=== PATIENT | female | born 1950 | race Caucasian/White ===

== ENCOUNTER 2016-12-15 18:08 | Inpatient (IN) | payer MEDICARE, MEDICAID ==
[~2016-12-15] VITALS: Ht 162.6 cm; Wt 60.8 kg
[~2016-12-15 18:08] MED LIST: AMLO5TAB PO; ATENOLOL100 MG; KEFLEX 500MG.500 MG PO; LISINOPRIL40 MG PO; TYLENOL W/CODEI1 TA2 PO
[2016-12-15 18:11] VITALS: BP 133/50
--- NOTE | 2016-12-15 18:15 | Emergency Room Report ---
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 N Clinical Suspician of Infection? N Mental Status: 1 - Regular (Normal Baseline) Sepsis Risk:Low Sepsis Risk Have you (or family members/close friends) recently traveled outside the [place]? N If Yes, where/when: Have you had exposure to infectious disease within the past month? N TB? Other? Specify: Comment The patient is brought in by ambulance for vomiting and diarrhea. She says she has been sick for 4-5 days. He has pain on her RIGHT side, in the flank area as well. She has felt chilled, but no documented fevers. She is diabetic, but does not check her blood sugar. She is not on any diabetic medications. The sugar by EMS was 327. She denies urinary symptoms. She is generally weak since the onset of this illness, unable to get up and walk very far. ALLERGIES Coded Allergies: albuterol (04/25/15) enalapril (04/25/15) fluticasone (04/25/15) lorazepam (04/25/15) propranolol (04/25/15) Home Medications Active Scripts CEPHALEXIN (Keflex 500MG Capsule) 500 MG PO Q8H #21 CAP Prov: 12/28/12 APAP 300MG W/CODEINE 30MG (Acetaminophen-Cod #3 Tablet) 1 TAB PO Q6HP #10 TAB Prov: 12/28/12 Reported Medications Amlodipine Besylate (Amlodipine) Atenolol (Atenolol) Lisinopril (Lisinopril 40MG) History Medical History General CAD? No Angina: Yes IN: No Hypertension? Yes Hyperlipidemia? Yes CHF? No DVT? No PE? No COPD? Yes Asthma? Yes Anemia? No GERD? No Gastric ulcers? No GI Bleed? No Hernia? Yes Thyroid Problems? No Hypothyroidism? No CVA? No Seizures? No Diabetes? Yes Insulin Dependent: No Insulin Pump: No Home FSBS? No Renal Insuffiency? No End Stage Renal Disease? No UTI? Yes Stones? No BPH? No GB Disease: Yes Nephritic Syndrome? No Asplenia? No Hepatitis? No Sickle Cell Disease? No Arthritis? No Migraines? No Cataracts? Yes Glaucoma? No MRSA? No HIV? No TB? No Anxiety? No Depression? No Cancer? No More? No Immunization Hx DT/Tetanus > 10 YRS Flu NEVER Pneumonia NEVER Surgical Hx Previous Surgery?Y Tubal Ligation GALLBLADDER CATARACTS ORAL SURGERY SUPER PUBIC VAGINAL SLING Family History Family Hx Diabetes No CAD Yes Hypertension Yes Hyperlipidemia No Cancer Yes TB No Social History Smoking Hx Smoker: Current Every Day Smoker Tobacco: Yes Type Cigarettes Packs/day 1 1/2 - 2 Packs Alcohol Alcohol: No Review of Systems All Other Systems Reviewed and Negative Constitutional chills, denies fever, malaise, weakness Respiratory denies cough, denies shortness of breath Cardiovascular denies chest pain Gastrointestinal abdominal pain, diarrhea, nausea, vomiting Genitourinary frequency (chronic). denies: dysuria, hematuria. Musculoskeletal back pain (RIGHT flank) Physical Exam Vital Signs Vital Signs Date Time Temp Pulse Resp B/P Pulse O2 O2 Flow FiO2 Ox Delivery Rate 12/15 1908 84 20 152/59 93 12/15 1811 98.8 80 18 133/50 94 General Appearance dry mucous membranes Eye Exam - bilateral eye normal exam, bilateral eye PERRL, bilateral eye EOMI Ear, Nose, Throat hearing grossly normal, normal ENT inspection Neck normal inspection, non-tender, supple, full range of motion Respiratory Status Yes: trachea midline, chest symmetrical, non tender chest. No: respiratory distress. Lung Sounds bilateral: normal breath sounds, lungs clear. Cardiovascular normal exam, regular rate/rhythm, no peripheral edema, no gallop, no JVD, no murmur, no rub, normal peripheral pulses Peripheral Pulses Pulses normal Yes Gastrointestinal normal bowel sounds, soft, no organomegaly, no guarding, no rebound, right-sided abdominal tenderness Extremities non-tender, normal range of motion, normal inspection Neurologic alert, shear scrapman II-XII nml as tested, normal exam, oriented x 3 Mental status normal mood/affect Skin intact, normal color, warm/dry Medical Decision Making LABS/Meds/Orders Pt receiving controlled substance in ED? No Results/Orders Laboratory Tests 12/15/161924: Urine Color YELLOW, Urine Appearance CLOUDY, Urine pH 5.0, Ur Specific [place] > = 1.030, Urine Protein 2+ H, Urine Ketones NEGATIVE, Urine Blood 3+ H, Urine Nitrate NEGATIVE, Urine Bilirubin NEGATIVE, Urine Urobilinogen 0.2, Ur Leukocyte Esterase TRACE H, Urine Glucose 2+ H 12/15/161844: Creatine Kinase 516 H, CK-MB (CK-2) Rel Index 0.9, CK and CKMB Interp 4.6 H, Troponin I < 0.02 12/15/161844: Sodium 129 L, Potassium 3.9, Chloride 92 L, Carbon Dioxide 23, BUN 25 H, Creatinine 2.1 H, Estimated Creat Clear 28 L, Estimated GFR (MDRD) 23 L, Glucose 407 H, Calcium 9.1, Total Bilirubin 0.6, AST 32, ALT 28, Alkaline Phosphatase 116, Total Protein 7.4, Albumin 3.2 L, Globulin 4.2 H, Albumin/ Globulin Ratio 0.8 L, Amylase 23 L, Lipase 52 L, WBC 17.3 H, RBC 4.81, Hgb 14.1, Hct 43.1, MCV 89.7, RDW 14.1, Plt Count 169, MPV 9.4, Gran % 85.0 H, Gran # 14.7 H, Total Counted Pending, Lymphocytes % 9.3 L, Monocytes % 5.1, Eosinophils % 0.3, Basophils % 0.2, Neutrophils Pending, Lymphocytes (Manual) Pending, Lymphocytes # 1.6, Monocytes # 0.9, Eosinophils # 0.1, Basophils # 0.0, Platelet Estimate Pending, PUBS MCHC 32.7, MCH 29.3, Acetone Level NONE DETECTED Current Medication Orders Sig/Eduard Start time Last Medication Dose Route Stop Time Status Admin Ceftriaxone Sodium 1 GM ONCE ONE 12/15 2014 AC Sodium Chloride 50 ML IV 12/16 2043 Sodium Chloride 1,000 ML .Q6H40M 12/16 1999 AC IV 12/15 2358 Sodium Chloride 1,000 ML .STK-MED ONE 12/15 1953 DC IV Insulin Human [rDNA 10 UNITS ONCE ONE 12/15 1944 DC origin] ME 12/15 1945 Ondansetron HCl 0 .STK-MED ONE 12/15 1849 DC .ROUTE Sodium Chloride 1,000 ML .STK-MED ONE 12/15 1850 DC IV Ondansetron HCl 4 MG ONCE ONE 12/15 181 DC 12/15 IV 12/15 181 185 Sodium Chloride 10 ML PRN PRN 12/15 181 AC IV 12/16 181 Sodium Chloride 1,000 ML .Q1H1M 12/15 181 DC 12/15 IV 12/15 1915 185 Sodium Chloride 10 ML PRN PRN 12/15 181 AC IV 12/16 181 Orders Procedure Date/time Status DIET-NOTHING BY MOUTH 12/16 B Active CULTURE, BLOOD 12/15 2006 Active LACTIC ACID 12/15 2006 Active DIFFERENTIAL-WBC 12/15 1844 Active VENOUS BLOOD GAS 12/15 184 Active Acetone, Serum 12/15 184 Complete ELECTROCARDIOGRAM REQUEST 12/15 182 Active DIARRHEA PANEL, PCR 12/15 182 Active CARDIAC ENZYMES 12/[address] ABD & PELVIS W/O CONTRAST 12/[address] ABD/PELVIS REQ 12/15 181 Complete URINALYSIS/COMPLETE 12/15 181 Complete IV SALINE LOCK 12/15 181 Active LIPASE 12/15 1813 Complete CBC WITH AUTO DIFF 12/15 1813 Active CHEM 12 PROFILE 12/15 1813 Complete AMYLASE 12/15 181 Complete 12 LEAD EKG-DELON (INITIAL) 12/15 UNK Active CM/EKG CM/EKG Comments EKG interpreted by Bneito Deutsch MD: Rhythm: sinus Rate: 79 [place]: normal Ectopy: none Conduction: QTC [address] Segment Changes: none T Wave Changes: none Q Waves: none No evidence of acute ischemia or injury Baseline artifact and wander present, but I consider the EKG adequate for accurate interpretation. Left ventricular hypertrophy XRAY/CT/US XRAY/CT/US CT abdomen, pelvis Comment CT scan interpreted by [facility] radiologist. Faxed report received and reviewed: Mild RIGHT hydronephrosis and hydroureter with no evidence of an obstructing calculus or lesion. Perinephric inflammation and free fluid. Air in the bladder. Progress - 8:00 PM: I have discussed the case with Dr. Villa who agrees to admit the patient to the hospital. We discussed the patient's clinical information, including history, exam, laboratory and radiology results and ED course. Specific orders requested by the admitting physician: [facility] and he will write admit orders Departure Departure Disposition Still a Patient Clinical Impression Primary Impression: Acute renal failure Qualifiers: Acute renal failure type: unspecified Qualified Code: N17.9 - Acute kidney failure, unspecified Secondary Impressions: Dehydration Gastroenteritis Hyperglycemia Urinary tract infection Qualifiers: Urinary tract infection type: acute pyelonephritis Qualified Code: N10 - Acute pyelonephritis Condition STABLE Referrals Ed Moscoso (Family) ED Critical Care Critical Care Yes Time spent 30-74 min Vital system(s) involved: Metabolic Failure, Renal Failure I was present at bedside for Coordinating pt's care, Interpreting EKGs/Strips , During my initial exam, Reviewing lab results, Reviewing old records, Discussing pt condition at 2010
--- OUTSIDE RECORDS SUMMARY | 2016-12-15 18:17 | External Medical Summary Rpt ---
Author Author , LORENZA BRITT Address Unknown Phone [email or web address] Care Team Providers Care Property Management Intern Name Role Phone [facility], Unavailable Unavailable [facility] Mary Villa MD, Unavailable Unavailable Mary Villa MD [facility] Unavailable Unavailable [id number] # [phone], [facility] [id number] # [phone] Purpose Continuity of Care Document - 08-19-2009 through 2016 Problems Code Diagnosis DOS Provider Status 527.2 527.2 12-28-2012 [facility] E11.9 TYPE 2 DIABETES MELLITUS WITHOUT COMPLICATIO NS Allergies, Adverse Reactions, Alerts Type Drug Allergy Adverse Reaction to Substance Substance Reaction Severity Propranolol Unknown Unknown Lorazepam Unknown Unknown Albuterol Unknown Unknown Enalapril Unknown Unknown Fluticasone Unknown Unknown Medications Na ND Rx Da Fi Fi Am Da Di Ph RX Ph St me C No te ll ll ou ys ag ar # ys at rm s nt no ma ic us Or Da si cy ia de te s n re d CE 00 08 0 No FT 78 -0 RI 19 7- Lo AX 32 20 ng ON 89 13 er E 5 1 Ac GM ti ve AL LI 63 08 0 No DO 32 -0 CA 30 7- Lo IN 20 20 ng E 11 13 er HC 0 L Ac 1% ti ve AL De 00 08 0 No xa 51 -0 me 74 7- Lo th 90 20 ng as 12 13 er on 5 e Ac 4M ti G/ ve Ml Sd v LI 00 12 10 [address] Ac SI 59 -1 -2 .0 TE 28 EP ti NO 10 8- 5- 00 45 HE ve NM 40 20 20 AI NS IL 90 10 11 D 1 PH DO 40 AR N MA R MG CY TA 03 BL 93 ET 8 # 03 93 VE 51 01 10 11 30 30 RI 86 CL Ac SI 24 -0 -2 .0 TE 48 AR ti CA 80 3- 3- 00 06 KE ve RE 15 20 20 AI 5 00 11 11 D DE 1 PH RE MG AR K MA J TA CY BL ET 03 93 8 # 03 93 AM 00 09 10 5 [address] Ac LO 05 -1 -1 .0 TE 92 EP ti DI 40 6- 5- 00 76 HE ve PI 10 20 20 AI NS NE 12 11 11 D 2 PH DO BE AR N SY MA R LA CY TE 5 03 93 MG 8 # TA 03 B 93 AT 00 09 10 5 [address] Ac EN 09 -1 -1 .0 TE 92 EP ti OL 30 6- 5- 00 77 HE ve OL 75 20 20 AI NS 30 11 11 D 10 1 PH DO 0 AR N MG MA R CY TA BL 03 ET 93 8 # 03 93 LI 00 12 09 11 [address] Ac SI 59 -1 -2 .0 TE 28 EP ti NO 10 8- 6- 00 45 HE ve NM 40 20 20 AI NS IL 90 10 11 D 1 PH DO 40 AR N MA R MG CY TA 03 BL 93 ET 8 # 03 93 AT 00 09 09 5 [address] Ac EN 1 -1 .0 TE 92 EP ti OL 30 6- 6- 00 77 HE ve OL 75 20 20 AI NS 30 11 11 D 10 1 PH DO 0 AR N MG MA R CY TA BL 03 ET 93 8 # 03 93 AM 00 09 09 5 [address] Ac LO -1 -1 .0 TE 92 EP ti DI 40 6- 6- 00 76 HE ve PI 10 20 20 AI NS NE 12 11 11 D 2 PH DO BE AR N SY MA R LA CY TE 5 03 93 MG 8 # TA 03 B 93 RA 00 08 09 11 [address] Ac NI 17 -1 -1 .0 TE 46 EP ti TI 24 2- 3- 00 74 HE ve DI 35 20 20 AI NS NE 74 11 11 D 9 PH DO 15 AR N 0 MA R MG CY TA 03 BL 93 ET 8 # 03 93 AT 00 09 08 11 [address] Ac EN 09 -2 -1 .0 TE 09 EP ti OL 30 2- 8- 00 65 HE ve OL 75 20 20 AI NS 30 10 11 D 10 1 PH DO 0 AR N MG MA R CY TA BL 03 ET 93 8 # 03 93 LI 00 12 08 11 [address] Ac SI 59 -1 -1 .0 TE 28 EP ti NO 10 8- 8- 00 45 HE ve NM 40 20 20 AI NS IL 90 10 11 D 1 PH DO 40 AR N MA R MG CY TA 03 BL 93 ET 8 # 03 93 RA 00 08 08 11 [address] Ac NI 17 -1 -1 .0 TE 46 EP ti TI 24 2- 2- 00 74 HE ve DI 35 20 20 AI NS NE 74 11 11 D 9 PH DO 15 AR N 0 MA R MG CY TA 03 BL 93 ET 8 # 03 93 AT 00 09 07 11 [address] Ac EN 09 -2 -1 .0 TE 09 EP ti OL 30 2- 8- 00 65 HE ve OL 75 20 20 AI NS 30 10 11 D 10 1 PH DO 0 AR N MG MA R CY TA BL 03 ET 93 8 # 03 93 LI 68 12 07 [address] Ac SI 18 -1 -1 .0 TE 28 EP ti NO 00 8- 8- 00 45 HE ve NM 51 20 20 AI NS IL 70 10 11 D 1 PH DO 40 AR N MA R MG CY TA 03 BL 93 ET 8 # 03 93 RA 00 02 07 3 [address] Ac NI 17 -0 -0 .0 TE 98 EP ti TI 24 9- 3- 00 89 HE ve DI 35 20 20 AI NS NE 74 11 11 D 9 PH DO 15 AR N 0 MA R MG CY TA 03 BL 93 ET 8 # 03 93 LI 68 12 06 11 [address] Ac SI 18 -1 -1 .0 TE 28 EP ti NO 00 8- 6- 00 45 HE ve NM 51 20 20 AI NS IL 70 10 11 D 1 PH DO 40 AR N MA R MG CY TA 03 BL 93 ET 8 # 03 93 AT 00 09 06 11 [address] Ac EN 09 -2 -1 .0 TE 09 EP ti OL 30 2- 6- 00 65 HE ve OL 75 20 20 AI NS 30 10 11 D 10 1 PH DO 0 AR N MG MA R CY TA BL 03 ET 93 8 # 03 93 VE 51 01 06 11 30 30 RI 86 CL Ac SI 24 -0 -1 .0 TE 48 AR ti CA 80 3- 6- 00 06 KE ve RE 15 20 20 AI 5 00 11 11 D DE 1 PH RE MG AR K MA J TA CY BL ET 03 93 8 # 03 93 RA 00 02 05 3 [address] Ac NI 17 -0 -2 .0 TE 98 EP ti TI 24 9- 0- 00 89 HE ve DI 35 20 20 AI NS NE 74 11 11 D 9 PH DO 15 AR N 0 MA R MG CY TA 03 BL 93 ET 8 # 03 93 AT 00 09 05 11 [address] Ac EN 09 -2 -1 .0 TE 09 EP ti OL 30 2- 7- 00 65 HE ve OL 75 20 20 AI NS 30 10 11 D 10 1 PH DO 0 AR N MG MA R CY TA BL 03 ET 93 8 # 03 93 64 12 05 11 [address] Ac 67 -1 -1 .0 TE 28 EP ti 90 8- 7- 00 45 HE ve 94 20 20 AI NS 20 10 11 D 1 PH DO AR N MA R CY 03 93 8 # 03 93 VE 51 01 04 11 30 30 RI 86 CL Ac SI 24 -0 -3 .0 TE 48 AR ti CA 80 3- 0- 00 06 KE ve RE 15 20 20 AI 5 00 11 11 D DE 1 PH RE MG AR K MA J TA CY BL ET 03 93 8 # 03 93 AT 00 09 04 11 [address] Ac EN 09 -2 -1 .0 TE 09 EP ti OL 30 2- 8- 00 65 HE ve OL 75 20 20 AI NS 30 10 11 D 10 1 PH DO 0 AR N MG MA R CY TA BL 03 ET 93 8 # 03 93 63 12 04 11 [address] Ac 30 -1 -1 .0 TE 28 EP ti 40 8- 8- 00 45 HE ve 53 20 20 AI NS 50 10 11 D 1 PH DO AR N MA R CY 03 93 8 # 03 93 RA 00 02 04 3 [address] Ac NI 17 -0 -0 .0 TE 98 EP ti TI 24 9- 7- 00 89 HE ve DI 35 20 20 AI NS NE 74 11 11 D 9 PH DO 15 AR N 0 MA R MG CY TA 03 BL 93 ET 8 # 03 93 63 12 03 [address] Ac 30 -1 -1 .0 TE 28 EP ti 40 8- 9- 00 45 HE ve 53 20 20 AI NS 50 10 11 D 1 PH DO AR N MA R CY 03 93 8 # 03 93 AT 00 09 03 11 [address] Ac EN 09 -2 -1 .0 TE 09 EP ti OL 30 2 65 HE ve OL 75 20 20 AI NS 30 10 11 D 10 1 PH DO 0 AR N MG MA R CY TA BL 03 ET 93 8 # 03 93 AT 00 09 02 11 [address] Ac EN 09 -2 -1 .0 TE 09 EP ti OL 30 2- 7 65 HE ve OL 75 20 20 AI NS 30 10 11 D 10 1 PH DO 0 AR N MG MA R CY TA BL 03 ET 93 8 # 03 93 63 12 02 11 [address] Ac 30 -1 -1 .0 TE 28 EP ti 40 8- 7 45 HE ve 53 20 20 AI NS 50 10 11 D 1 PH DO AR N MA R CY 03 93 8 # 03 93 TR 00 02 02 [address] Ac AM 09 -0 -0 .0 TE 98 EP ti AD 30 9 86 HE ve OL 05 20 20 AI NS 80 11 11 D HC 1 PH DO L AR N 50 MA R CY MG 03 TA 93 BL 8 ET # 03 93 CY 00 02 02 1 [address] Ac CL 37 -0 -0 .0 TE 98 EP ti OB 80 88 HE ve EN 75 20 20 AI NS ZA 11 11 11 D NM 0 PH DO IN AR N E MA R 10 CY MG 03 93 TA 8 BL # ET 03 93 RA 00 02 02 3 [address] Ac NI 17 -0 -0 .0 TE 98 EP ti TI 24 89 HE ve DI 35 20 20 AI NS NE 74 11 11 D 9 PH DO 15 AR N 0 MA R MG CY TA 03 BL 93 ET 8 # 03 93 AT 00 09 01 11 [address] Ac EN 09 -2 -1 .0 TE 09 EP ti OL 30 2 65 HE ve OL 75 20 20 AI NS 30 10 11 D 10 1 PH DO 0 AR N MG MA R CY TA BL 03 ET 93 8 # 03 93 00 03 01 5 [address] Ac 17 -3 -1 .0 TE 81 EP ti 27 1- 6 00 94 HE ve 17 20 20 AI NS 16 10 11 D 0 PH DO AR N MA R CY 03 93 8 # 03 93 63 12 01 [address] Ac 30 -1 -1 .0 TE 28 EP ti 40 8 6 45 HE ve 53 20 20 AI NS 50 10 11 D 1 PH DO AR N MA R CY 03 93 8 # 03 93 VE 51 01 01 11 30 30 RI 86 CL Ac SI 24 -0 -0 .0 TE 48 AR ti CA 80 3- 3- 00 06 KE ve RE 15 20 20 AI 5 00 11 11 D DE 1 PH RE MG AR K MA J TA CY BL ET 03 93 8 # 03 93 AT 00 09 12 11 [address] Ac EN 09 -2 -2 .0 TE 09 EP ti OL 30 2- 0- 00 65 HE ve OL 75 20 20 AI NS 30 10 10 D 10 1 PH DO 0 AR N MG MA R CY TA BL 03 ET 93 8 # 03 93 63 12 12 11 [address] Ac 30 -1 -1 .0 TE 28 EP ti 40 8- 8- 00 45 HE ve 53 20 20 AI NS 50 10 10 D 1 PH DO AR N MA R CY 03 93 8 # 03 93 00 03 12 5 [address] Ac 17 -3 -0 .0 TE 81 EP ti 27 1- 8- 00 94 HE ve 17 20 20 AI NS 16 10 10 D 0 PH DO AR N MA R CY 03 93 8 # 03 93 63 03 12 [address] Ac 30 -3 -0 .0 TE 78 EP ti 40 1- 1- 00 58 HE ve 53 20 20 AI NS 40 10 10 D 1 PH DO AR N MA R CY 03 93 8 # 03 93 DE 00 01 11 5 30 30 RI 81 CL Ac TR 00 -1 -2 .0 TE 70 AR ti OL 95 4- 7- 00 92 KE ve 19 20 20 AI LA 10 10 10 D DE 4 1 PH RE AR K MG MA J CY CA PS 03 UL 93 E 8 # 03 93 AT 00 09 11 [address] Ac EN 09 -2 -2 .0 TE 09 EP ti OL 30 2- 3- 00 65 HE ve OL 75 20 20 AI NS 30 10 10 D 10 1 PH DO 0 AR N MG MA R CY TA BL 03 ET 93 8 # 03 93 63 03 11 [address] Ac 30 -3 -0 .0 TE 78 EP ti 40 1- 3- 00 58 HE ve 53 20 20 AI NS 40 10 10 D 1 PH DO AR N MA R CY 03 93 8 # 03 93 NI 00 11 11 0 10 5 CL 22 CL Ac TR 18 -0 -0 .0 IN 60 AR ti OF 50 2- 2- 00 IC 23 KE ve UR 12 20 20 AN 20 10 10 PH DE TO 1 AR RE IN MA K CY J MO NO LL -M C CR 10 0 MG AT 00 09 10 [address] Ac EN 09 -2 -2 .0 TE 09 EP ti OL 30 2- 2- 00 65 HE ve OL 75 20 20 AI NS 30 10 10 D 10 1 PH DO 0 AR N MG MA R CY TA BL 03 ET 93 8 # 03 93 00 03 10 5 [address] Ac 17 -3 -0 .0 TE 81 EP ti 27 1- 1- 00 94 HE ve 17 20 20 AI NS 14 10 10 D 9 PH DO AR N MA R CY 03 93 8 # 03 93 DE 00 01 10 5 30 30 RI 81 CL Ac TR 00 -1 -0 .0 TE 70 AR ti OL 95 4- 1- 00 92 KE ve 19 20 20 AI LA 10 10 10 D DE 4 1 PH RE AR K MG MA J CY CA PS 03 UL 93 E 8 # 03 93 AT 00 09 09 [address] Ac EN 09 -2 -2 .0 TE 09 EP ti OL 30 2- 2- 00 65 HE ve OL 75 20 20 AI NS 30 10 10 D 10 1 PH DO 0 AR N MG MA R CY TA BL 03 ET 93 8 # 03 93 AT 00 03 08 [address] Ac EN 09 -2 -2 .0 TE 74 EP ti OL 30 9- 3- 00 44 HE ve OL 75 20 20 AI NS 30 10 10 D 10 1 PH DO 0 AR N MG MA R CY TA BL 03 ET 93 8 # 03 93 00 08 08 5 10 25 RI 84 SC Ac 60 -1 -1 0. TE 53 HU ti 34 2- 2- 00 16 LS ve 61 20 20 0 AI TA 42 10 10 D D 1 PH CA AR MP MA BE CY LL K 03 93 8 # 03 93 NE 00 08 08 2 [address] Ac XI 18 -0 -0 .0 TE 42 EP ti UM 65 4- 4- 00 45 HE ve 04 [address] 03 10 10 D 1 PH DO 40 AR N MA R MG CY CA 03 PS 93 UL 8 E # 03 93 00 08 08 [address] Ac 60 -0 -0 0. TE 42 EP ti 34 4- 4- 00 46 HE ve 61 20 20 0 AI NS 52 10 10 D 8 PH DO AR N MA R CY 03 93 8 # 03 93 AT 00 03 07 5 [address] Ac EN 09 -2 -2 .0 TE 74 EP ti OL 30 9 00 44 HE ve OL 75 20 20 AI NS 30 10 10 D 10 1 PH DO 0 AR N MG MA R CY TA BL 03 ET 93 8 # 03 93 AT 00 03 06 5 [address] Ac EN 09 -2 -2 .0 TE 74 EP ti OL 30 9 5 00 44 HE ve OL 75 20 20 AI NS 30 10 10 D 10 1 PH DO 0 AR N MG MA R CY TA BL 03 ET 93 8 # 03 93 LI 00 03 06 11 [address] Ac SI 37 -3 -2 .0 TE 78 EP ti NO 82 58 HE ve NM 07 20 20 AI NS IL 50 10 10 D 1 PH DO 20 AR N MA R MG CY TA 03 BL 93 ET 8 # 03 93 DE 00 01 06 5 30 30 RI 81 CL Ac TR 00 -2 .0 TE 70 AR ti OL 95 92 KE ve 19 20 20 AI LA 10 10 10 D DE 4 1 PH RE AR K MG MA J CY CA PS 03 UL 93 E 8 # 03 93 AT 00 03 05 5 [address] Ac EN 09 2 -2 .0 TE 74 EP ti OL 30 9 8 00 44 HE ve OL 75 20 20 AI NS 30 10 10 D 10 1 PH DO 0 AR N MG MA R CY TA BL 03 ET 93 8 # 03 93 00 03 05 5 [address] Ac 90 -3 -2 .0 TE 81 EP ti 45 8 94 HE ve 44 20 20 AI NS 66 10 10 D 1 PH DO AR N MA R CY 03 93 8 # 03 93 ME 00 04 05 5 [address] Ac TF 09 - -2 .0 TE 98 EP ti OR 31 4 8- 00 11 HE ve MA 04 20 20 AI NS N 80 10 10 D HC 1 PH DO L AR N 50 MA R 0 CY MG 03 TA 93 BL 8 ET # 03 93 DE 00 01 05 5 30 30 RI 81 CL Ac TR 00 -1 -1 .0 TE 70 AR ti OL 95 4- 5- 00 92 KE ve 19 20 20 AI LA 10 10 10 D DE 4 1 PH RE AR K MG MA J CY CA PS 03 UL 93 E 8 # 03 93 LI 00 03 05 [address] Ac SI 37 -3 -0 .0 TE 78 EP ti NO 82 1- 4- 00 58 HE ve NM 07 20 20 AI NS IL 50 10 10 D 1 PH DO 20 AR N MA R MG CY TA 03 BL 93 ET 8 # 03 93 AT 00 03 04 5 [address] Ac EN 09 -2 -2 .0 TE 74 EP ti OL 30 9 44 HE ve OL 75 20 20 AI NS 30 10 10 D 10 1 PH DO 0 AR N MG MA R CY TA BL 03 ET 93 8 # 03 93 DE 00 01 04 5 30 30 RI 81 CL Ac TR 00 -1 -1 .0 TE 70 AR ti OL 95 4- 4- 00 92 KE ve 19 20 20 AI LA 10 10 10 D DE 4 1 PH RE AR K MG MA J CY CA PS 03 UL 93 E 8 # 03 93 ME 00 04 04 5 [address] Ac TF 09 -1 -1 .0 TE 98 EP ti OR 31 4 4 11 HE ve MA 04 20 20 AI NS N 80 10 10 D HC 1 PH DO L AR N 50 MA R 0 CY MG 03 TA 93 BL 8 ET # 03 93 00 03 03 [address] Ac 90 -3 -3 .0 TE 81 EP ti 45 1- - 00 94 HE ve 44 20 20 AI NS 66 10 10 D 1 PH DO AR N MA R CY 03 93 8 # 03 93 LI 00 03 03 [address] Ac SI 37 -3 -3 .0 TE 78 EP ti NO 82 1 58 HE ve NM 07 20 20 AI NS IL 50 10 10 D 1 PH DO 20 AR N MA R MG CY TA 03 BL 93 ET 8 # 03 93 AT 00 03 03 5 [address] Ac EN 09 -2 -2 .0 TE 74 EP ti OL 30 00 44 HE ve OL 75 20 20 AI NS 30 10 10 D 10 1 PH DO 0 AR N MG MA R CY TA BL 03 ET 93 8 # 03 93 Vital Signs 12-28-2012 13:43 Name Value Interpretat Reference Comment ion Range BP 72 mm[Hg] Diastolic BP Systolic 169 mm[Hg] Heart 82 /min Rate/Pulse O2% 97 % Respiratory 18 /min Rate 12-28-2012 13:35 Name Value Interpretat Reference Comment ion Range BP 72 mm[Hg] Diastolic BP Systolic 169 mm[Hg] Heart 60 /min Rate/Pulse O2% 98 % Respiratory 18 /min Rate Encounters Encounter Start End Date Code Location Performer Type Date Emergency JADE Villa MD (ER) 3 12:59 3 13:56 [facility]
--- OUTSIDE RECORDS SUMMARY | 2016-12-15 18:17 | External Medical Summary Rpt ---
Author Author , LORENZA BRITT Address Unknown Phone [email or web address] [email or web address] Care Professional Development Manager Name Role Phone [facility], Unavailable Unavailable [facility] Mary Villa MD, Unavailable Unavailable Mary Villa MD [facility] Unavailable Unavailable [id number] # [phone], [facility] [id number] # [phone] Purpose Continuity of Care Document - 08-19-2009 through 2016 Problems Code Diagnosis DOS Provider Status 527.2 527.2 12-28-2012 [facility] E11.9 TYPE 2 DIABETES MELLITUS WITHOUT [...] 10 8- 5- 00 45 HE ve KS 40 20 20 AI NS IL 90 [...] 10 8- 6- 00 45 HE ve KS 40 20 20 AI NS IL 90 [...] 10 8- 8- 00 45 HE ve KS 40 20 20 AI NS IL 90 [...] 00 8- 8- 00 45 HE ve KS 51 20 20 AI NS IL 70 [...] 00 8- 6- 00 45 HE ve KS 51 20 20 AI NS IL 70 [...] AI NS ZA 11 11 11 D KS 0 PH DO IN AR N E [...] EP ti NO 82 58 HE ve KS 07 20 20 AI NS IL 50 [...] 31 4 8- 00 11 HE ve VT 04 20 20 AI NS N 80 [...] 82 1- 4- 00 58 HE ve KS 07 20 20 AI NS IL 50 [...] OR 31 4 4 11 HE ve VT 04 20 20 AI NS N 80 [...] ti NO 82 1 58 HE ve KS 07 20 20 AI NS IL 50 [...] Villa MD (ER) 3 12:59 3 13:56 [facility]
--- OUTSIDE RECORDS SUMMARY | 2016-12-15 18:19 | External Medical Summary Rpt ---
Demographics Preferred Language Hungarian Marital Status Unknown Rastafarian Affiliation Unknown Race Unknown Ethnic Group Unknown Author Author , LORENZA BRITT Address Unknown Phone [email or web address] Care Team Providers Care Archives Specialist Name Role Phone [facility], Unavailable Unavailable [facility] Unavailable Unavailable [id number] # [phone], [facility] [id number] # [phone] Purpose Continuity of Care Document - 08-19-2009 through 2016 Medications Na ND Rx Da Fi Fi Am Da Di Ph RX Ph St me C No te ll ll ou ys ag ar # ys at rm s nt no ma ic us Or Da si cy ia de te s n re d LI 00 12 10 11 [address] Ac SI 59 -1 -2 .0 TE 28 EP ti NO 10 8- 5- 00 45 HE ve WA 40 20 20 AI NS IL 90 [...] 10 8- 6- 00 45 HE ve WA 40 20 20 AI NS IL 90 10 11 D 1 PH DO 40 AR N MA R MG CY TA 03 BL 93 ET 8 # 03 93 AM 00 09 [...] TA 03 B 93 AT 00 09 09 5 [address] Ac EN 09 -1 -1 .0 TE 92 EP ti OL 30 6- 6- 00 77 HE ve OL 75 20 20 AI NS 30 11 11 D 10 1 PH DO 0 AR N MG MA R CY TA BL 03 ET 93 8 # 03 93 RA 00 08 09 11 60 [...] 10 8- 8- 00 45 HE ve WA 40 20 20 AI NS IL 90 [...] 00 8- 8- 00 45 HE ve WA 51 20 20 AI NS IL 70 [...] 00 8- 6- 00 45 HE ve WA 51 20 20 AI NS IL 70 [...] ET 03 93 8 # 03 93 63 12 04 11 [address] Ac 30 -1 -1 .0 TE 28 EP ti 40 8 8 45 HE ve 53 20 20 AI NS 50 10 11 D 1 PH DO AR N MA R CY 03 93 8 # 03 93 AT 00 09 04 11 [address] Ac EN 09 -2 -1 .0 TE 09 EP ti OL 30 2- 8 00 65 HE ve OL 75 20 20 AI NS 30 10 11 D 10 1 PH DO 0 AR N MG MA R CY TA BL 03 ET 93 8 # 03 93 RA 00 02 04 3 [address] Ac NI 17 -0 -0 .0 TE 98 EP ti TI 24 9 89 HE ve DI 35 20 20 [...] 93 8 # 03 93 63 12 03 11 [address] Ac 30 -1 -1 .0 TE 28 EP ti 40 8 45 HE ve 53 20 20 AI [...] .0 TE 28 EP ti 40 8 7 45 HE ve 53 20 20 AI NS 50 10 11 D 1 PH DO AR N MA R CY 03 93 8 # 03 93 TR 00 02 02 [address] Ac AM 09 -0 -0 .0 TE 98 EP ti AD 30 86 HE ve OL 05 20 20 AI NS 80 11 11 D HC 1 PH DO L AR N 50 MA R CY MG 03 TA 93 BL 8 ET # 03 93 CY 00 02 02 1 [address] Ac CL 37 -0 -0 .0 TE 98 EP ti OB 80 9 88 HE ve EN 75 20 20 AI NS ZA 11 11 11 D WA 0 PH DO IN AR N E MA R 10 CY MG 03 93 TA 8 BL # ET 03 93 RA 00 02 02 3 [address] Ac NI 17 -0 -0 .0 TE 98 EP ti TI 24 9- 9- 00 89 HE ve DI 35 20 20 AI NS NE 74 11 11 D 9 PH DO 15 AR N 0 MA R MG CY TA 03 BL 93 ET 8 # 03 93 AT 00 09 01 11 [address] Ac EN 09 -2 -1 .0 TE 09 EP ti OL 30 2- 9- 00 65 HE ve OL 75 20 20 AI NS 30 10 11 D 10 1 PH DO 0 AR N MG MA R CY TA BL 03 ET 93 8 # 03 93 00 03 01 5 [address] Ac 17 -3 -1 .0 TE 81 EP ti 27 1- 6- 00 94 HE ve 17 20 20 AI NS 16 10 11 D 0 PH DO AR N MA R CY 03 93 8 # 03 93 63 12 01 11 [address] Ac 30 -1 -1 .0 TE 28 EP ti 40 8- 6- 00 45 HE ve 53 20 20 [...] TE 74 EP ti OL 30 9- 4- 00 44 HE ve OL 75 20 20 AI NS 30 10 10 D 10 1 PH DO 0 AR N MG MA R CY TA BL 03 ET 93 8 # 03 93 AT 00 03 06 5 [address] Ac EN 09 -2 -2 .0 TE 74 EP ti OL 30 9- 5- 00 44 HE ve OL 75 20 20 AI NS 30 10 10 D 10 1 PH DO 0 AR N MG MA R CY TA BL 03 ET 93 8 # 03 93 LI 00 03 06 [address] Ac SI 37 -3 -2 .0 TE 78 EP ti NO 82 1- 1- 00 58 HE ve WA 07 20 20 AI NS IL 50 [...] TE 74 EP ti OL 30 9- 8- 00 44 HE ve OL 75 20 20 AI NS 30 10 10 D 10 1 PH DO 0 AR N MG MA R CY TA BL 03 ET 93 8 # 03 93 00 03 05 5 [address] Ac 90 -3 -2 .0 TE 81 EP ti 45 1- 8- 00 94 HE ve 44 20 20 AI NS 66 10 10 D 1 PH DO AR N MA R CY 03 93 8 # 03 93 ME 00 04 05 5 [address] Ac TF 09 -1 -2 .0 TE 98 EP ti OR 31 4- 8- 00 11 HE ve TN 04 20 20 AI NS N 80 [...] 82 1- 4- 00 58 HE ve WA 07 20 20 AI NS IL 50 10 10 D 1 PH DO 20 AR N MA R MG CY TA 03 BL 93 ET 8 # 03 93 AT 00 03 04 [address] Ac EN 09 -2 -2 .0 TE 74 EP ti OL 30 9- 7- 00 44 HE ve OL 75 20 20 AI NS 30 10 10 D 10 1 PH DO 0 AR N MG MA R CY TA BL 03 ET 93 8 # 03 93 ME 00 04 04 [address] Ac TF 09 -1 -1 .0 TE 98 EP ti OR 31 4- 4- 00 11 HE ve TN 04 20 20 AI NS N 80 10 10 D HC 1 PH DO L AR N 50 MA R 0 CY MG 03 TA 93 BL 8 ET # 03 93 DE 00 01 04 [...] TE 78 EP ti NO 82 1- 58 HE ve WA 07 20 20 AI NS IL 50 10 10 D 1 PH DO 20 AR N MA R MG CY TA 03 BL 93 ET 8 # 03 93 00 03 03 5 [address] Ac 90 -3 -3 .0 TE 81 EP ti 45 1 94 HE ve 44 20 20 AI NS 66 10 10 D 1 PH DO AR N MA R CY 03 93 8 # 03 93 AT 00 03 03 [address] Ac EN 09 -2 -2 .0 TE 74 EP ti OL 30 9- 9 00 44 HE ve OL 75 20 20 AI NS 30 10 10 D 10 1 PH DO 0 AR N MG MA R CY TA BL 03 ET 93 8 # 03 93
--- OUTSIDE RECORDS SUMMARY | 2016-12-15 18:19 | External Medical Summary Rpt ---
Demographics Preferred Language Armenian Marital Status Unknown Anabaptist Affiliation Unknown Race Unknown Ethnic Group Unknown Author Author , LORENZA BRITT Address Unknown Phone [email or web address] Care Team Providers Care Door Fitter Name Role Phone [facility] Unavailable [facility] Unavailable Unavailable [id number] # [phone], [facility] [id number] # [phone] Purpose Continuity of Care Document [...] 10 8- 5- 00 45 HE ve TN 40 20 20 AI NS IL 90 [...] 10 8- 6- 00 45 HE ve TN 40 20 20 AI NS IL 90 [...] 10 8- 8- 00 45 HE ve TN 40 20 20 AI NS IL 90 [...] 00 8- 8- 00 45 HE ve TN 51 20 20 AI NS IL 70 [...] 00 8- 6- 00 45 HE ve TN 51 20 20 AI NS IL 70 [...] AI NS ZA 11 11 11 D TN 0 PH DO IN AR N E [...] 82 1- 1- 00 58 HE ve TN 07 20 20 AI NS IL 50 [...] 31 4- 8- 00 11 HE ve WI 04 20 20 AI NS N 80 [...] 82 1- 4- 00 58 HE ve TN 07 20 20 AI NS IL 50 [...] 31 4- 4- 00 11 HE ve WI 04 20 20 AI NS N 80 [...] ti NO 82 1- 58 HE ve TN 07 20 20 AI NS IL 50 [...]
--- OUTSIDE RECORDS SUMMARY | 2016-12-15 18:20 | External Medical Summary Rpt ---
Demographics Preferred Language Croatian Marital Status Unknown Anabaptism Affiliation Unknown Race Unknown Ethnic Group Unknown Author Author , LORENZA BRITT Address Unknown Phone Immunization Unable to retrieve immunization data due to connection failure with Immunization Registry. Please try again later.
--- OUTSIDE RECORDS SUMMARY | 2016-12-15 18:20 | External Medical Summary Rpt ---
Author Author LORENZA Ornelas, [employer]ZA [employer] Organization [employer] Address Unknown Phone Unavailable
--- OUTSIDE RECORDS SUMMARY | 2016-12-15 18:20 | External Medical Summary Rpt ---
Demographics Preferred Language Urdu Marital Status Unknown Druze Affiliation Unknown Race Unknown Ethnic Group Unknown Author Author , LORENZA BRITT Address Unknown Phone Immunization Unable to retrieve immunization data due to connection failure with Immunization Registry. Please try again later.
[2016-12-15 18:57] LABS: HEMOGLOBIN 14.1 g/dL (12.2-16.2); LYMPH # 1.6 K/mm3 (0.7-4.5); LYMPH % 9.3 % (10-50.0)
[2016-12-15 19:59] LABS: URINE BILIRUBIN - DIPSTICK NEGATIVE (NEG); URINE BLOOD 3+ (NEG)
[2016-12-15 20:11] LABS: NEUTROPHILS 73 % (42-76)
--- OUTSIDE RECORDS SUMMARY | 2016-12-15 20:16 | External Medical Summary Rpt ---
Author Author , LORENZA BRITT Address Unknown Phone [email or web address] Care Team Providers Care Director Of Real Estate Name Role Phone [facility], Un[facility] Unavailable [facility] Mary Villa MD, Unavailable Unavailable Mary Villa MD [facility] Unavailable Unavailable [id number] # [phone], [facility] [id number] # [phone] Purpose Continuity of Care Document - 08-19-2009 through 2016 Problems Code Diagnosis DOS Provider Status 527.2 527.2 12-28-2012 [facility] E11.9 TYPE 2 DIABETES MELLITUS WITHOUT COMPLICATIO NS E78.4 OTHER HYPERLIPIDE SHRUTHI N39.0 URINARY TRACT INFECTION, SITE NOT SPECIFIED 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) W/O ABN FINDINGS Z12.31 ENCNTR SCREEN MAMMOGRAM FOR MALIGNANT NEOPLASM OF BREAST Allergies, Adverse Reactions, Alerts Type Drug Allergy [...] 10 8- 5- 00 45 HE ve MT 40 20 20 AI NS IL 90 [...] [address] Ac EN -1 .0 TE 92 EP ti OL [...] 10 8- 6- 00 45 HE ve MT 40 20 20 AI NS IL 90 [...] [address] Ac EN -1 .0 TE 92 EP ti OL [...] 10 8- 8- 00 45 HE ve MT 40 20 20 AI NS IL 90 [...] 00 8- 8- 00 45 HE ve MT 51 20 20 AI NS IL 70 [...] 00 8- 6- 00 45 HE ve MT 51 20 20 AI NS IL 70 [...] .0 TE 28 EP ti 40 8 9 45 HE ve 53 20 20 AI NS 50 10 11 D 1 PH DO AR N MA R CY 03 93 8 # 03 93 63 12 02 11 [address] Ac 30 -1 -1 .0 TE 28 EP ti 40 45 HE ve 53 20 20 AI NS 50 10 11 D 1 PH DO AR N MA R CY 03 93 8 # 03 93 AT 00 09 02 11 [address] Ac EN 09 -2 -1 .0 TE 09 EP ti OL 30 65 HE ve OL 75 20 20 AI NS 30 10 11 D 10 1 PH DO 0 AR N MG MA R CY TA BL 03 ET 93 8 # 03 93 TR 00 [...] AI NS ZA 11 11 11 D MT 0 PH DO IN AR N E [...] -1 .0 TE 81 EP ti 27 6 94 HE ve 17 20 20 AI [...] 82 1- 1- 00 58 HE ve MT 07 20 20 AI NS IL 50 [...] UL 93 E 8 # 03 93 00 03 05 [...] 31 4- 8- 00 11 HE ve AL 04 20 20 AI NS N 80 10 10 D HC 1 PH DO L AR N 50 MA R 0 CY MG 03 TA 93 BL 8 ET # 03 93 AT 00 03 05 [...] 8 # 03 93 DE 00 01 05 [...] 82 1- 4- 00 58 HE ve MT 07 20 20 AI NS IL 50 [...] 31 4- 4- 00 11 HE ve AL 04 20 20 AI NS N 80 10 10 D HC 1 PH DO L AR N 50 MA R 0 CY MG 03 TA 93 BL 8 ET # 03 93 00 03 03 5 [address] Ac 90 -3 -3 .0 TE 81 EP ti 45 1- 1- 00 94 HE ve 44 20 20 AI NS 66 10 10 D 1 PH DO AR N MA R CY 03 93 8 # 03 93 LI 00 03 03 [address] Ac SI 37 -3 -3 .0 TE 78 EP ti NO 82 1- 1- 00 58 HE ve MT 07 20 20 AI NS IL 50 10 10 D 1 PH DO 20 AR N MA R MG CY TA 03 BL 93 ET 8 # 03 93 AT 00 03 03 [address] Ac EN 09 -2 -2 .0 TE 74 EP ti OL 30 9- 9- 00 44 HE ve OL 75 20 [...] Villa MD (ER) 3 12:59 3 13:56 [facility]
--- OUTSIDE RECORDS SUMMARY | 2016-12-15 20:16 | External Medical Summary Rpt ---
Author Author , LORENZA BRITT Address Unknown Phone [email or web address] Care Team Providers Care Visual Merchandising Specialist Name Role Phone [facility], Unavailable Unavailable [facility] Mary Villa MD, Unavailable Unavailable Mary Villa MD [facility] Unavailable Unavailable [id number] # [phone], [facility] [id number] # [phone] Purpose Continuity of Care Document - 08-19-2009 through 2016 Problems Code Diagnosis DOS Provider Status 527.2 527.2 12-28-2012 [facility] E11.9 TYPE 2 DIABETES MELLITUS WITHOUT COMPLICATIO NS E78.4 OTHER HYPERLIPIDE SHRUTHI N39.0 URINARY TRACT INFECTION, SITE NOT SPECIFIED 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
--- OUTSIDE RECORDS SUMMARY | 2016-12-15 20:18 | External Medical Summary Rpt ---
Demographics Preferred Language Kiswahili Marital Status Unknown Zoroastrianism Affiliation Unknown Race Unknown Ethnic Group Unknown Author Author , LORENZA BRITT Address Unknown Phone Immunization Unable to retrieve immunization data due to connection failure with Immunization Registry. Please try again later.
--- OUTSIDE RECORDS SUMMARY | 2016-12-15 20:18 | External Medical Summary Rpt ---
Demographics Preferred Language Hungarian Marital Status Unknown Anglican Affiliation Unknown Race Unknown Ethnic Group Unknown Author Author , LORENZA BRITT Address Unknown Phone Immunization Unable to retrieve immunization data due to connection failure with Immunization Registry. Please try again later.
--- OUTSIDE RECORDS SUMMARY | 2016-12-15 20:18 | External Medical Summary Rpt ---
Demographics Preferred Language Lithuanian Marital Status Unknown Samaritan Affiliation Unknown Race Unknown Ethnic Group Unknown Author Author , LORENZA BRITT Address Unknown Phone [email or web address] Care Team Providers Care Electrical And Instrument Technician Name Role Phone [facility] Un[facility]available [facility] Unavailable Unavailable [id number] # [phone], [facility] [id number] # 0393 Purpose Continuity of Care Document [...] 10 8- 5- 00 45 HE ve DE 40 20 20 AI NS IL 90 [...] 10 8- 6- 00 45 HE ve DE 40 20 20 AI NS IL 90 [...] 10 8- 8- 00 45 HE ve DE 40 20 20 AI NS IL 90 [...] 00 8- 8- 00 45 HE ve DE 51 20 20 AI NS IL 70 [...] 00 8- 6- 00 45 HE ve DE 51 20 20 AI NS IL 70 [...] AI NS ZA 11 11 11 D DE 0 PH DO IN AR N E [...] 82 1- 1- 00 58 HE ve DE 07 20 20 AI NS IL 50 [...] 31 4- 8- 00 11 HE ve CA 04 20 20 AI NS N 80 [...] 82 1- 4- 00 58 HE ve DE 07 20 20 AI NS IL 50 [...] 31 4- 4- 00 11 HE ve CA 04 20 20 AI NS N 80 [...] ti NO 82 1- 58 HE ve DE 07 20 20 AI NS IL 50 [...]
--- OUTSIDE RECORDS SUMMARY | 2016-12-15 20:18 | External Medical Summary Rpt ---
Demographics Preferred Language Chinese Marital Status Unknown Episcopal Affiliation Unknown Race Unknown Ethnic Group Unknown Author Author , LORENZA BRITT Address Unknown Phone [email or web address] Care Team Providers Care Mat Inspector Name Role Phone [facility], Un[facility]available [facility] Unavailable Unavailable [id number] # [phone], [facility] [id number] # [phone] Purpose Continuity of Care Document [...] 10 8- 5- 00 45 HE ve UT 40 20 20 AI NS IL 90 [...] 10 8- 6- 00 45 HE ve UT 40 20 20 AI NS IL 90 [...] 10 8- 8- 00 45 HE ve UT 40 20 20 AI NS IL 90 [...] 00 8- 8- 00 45 HE ve UT 51 20 20 AI NS IL 70 [...] 00 8- 6- 00 45 HE ve UT 51 20 20 AI NS IL 70 [...] AI NS ZA 11 11 11 D UT 0 PH DO IN AR N E [...] 82 1- 1- 00 58 HE ve UT 07 20 20 AI NS IL 50 [...] 31 4- 8- [address] 20 20 AI NS N 80 [...] 82 1- 4- 00 58 HE ve UT 07 20 20 AI NS IL 50 [...] 31 4- 4- [address] 04 20 20 AI NS N 80 [...] ti NO 82 1- 58 HE ve UT 07 20 20 AI NS IL 50 [...]
--- OUTSIDE RECORDS SUMMARY | 2016-12-15 20:19 | External Medical Summary Rpt ---
Author Author LORENZA Ornelas, LORENZA [employer] Address Unknown Phone Unavailable Results Acetone [Mass/volume] in Serum or Plasma Observa Value Referen Units Interpr Notes Date tion ce etation Range Acetone NOT No No No Dec 15 [Mass/vol DETECTD informati informati informati 2016 6:45 ume] in on in on in on in PM Serum or source source source Plasma data data data Amylase [Enzymatic activity/volume] in Serum or Plasma Observa Value Referen Units Interpr Notes Date tion ce etation Range Amylase 25 - 115 U/L Low No Dec 15 [Enzymati informati 2017 6:45 c on in PM activity/ source volume] data in Serum or Plasma Comprehensive metabolic 2000 panel in Serum or Plasma Observa Value Referen Units Interpr Notes Date ti ce etation Range Albumin/G 1.1 - 1.8 No Low No Dec 15 lobulin informati informati 2016 6:45 [Mass on in on in PM ratio] in source source Serum or data data Plasma Albumin 3.4 - 5.0 gm/dL Low No Dec 15 [Mass/vol informati 2016 6:45 ume] in on in PM Serum or source Plasma data Alkaline 46 - 116 U/L Normal No Dec 15 phosphata informati 2016 6:45 se on in PM [Enzymati source c data activity/ volume] in Serum or Plasma Bilirubin 0.2 - 1.0 mg/dL Normal No Dec 15 .total informati 2017 6:45 [Mass/vol on in PM ume] in source Serum or data Plasma Urea 7 - 18 mg/dL High No Dec 15 nitrogen informati 2016 6:45 [Mass/vol on in PM ume] in source Serum or data Plasma Calcium 8.5 - mg/dL Normal No Dec 15 [Mass/vol 10.1 informati 2017 6:45 ume] in on in PM Serum or source Plasma data Chloride 98 - 107 mmoL/L Low No Dec 15 [Moles/vo informati 2017 6:45 lume] in on in PM Serum or source Plasma data Carbon 21.0 - mmoL/L Normal No Dec 15 dioxide, 32.0 informati 2016 6:45 total on in PM [Moles/vo source lume] in data Serum or Plasma Creatinin 0.55 - mg/dL High No Dec 15 e 1.02 informati 2016 6:45 [Mass/vol on in PM ume] in source Serum or data Plasma Creatinin 50 - 200 ML/MIN Low No Dec 15 e renal informati 2016 6:45 clearance on in PM source predicted data by Cockcroft -Gault formula Estimated 59- ML/MIN Low REFERENCE Dec 15 RANGE: 2017 6:45 glomerula >60 PM r ML/MIN/1. filtratio 73 SQUARE n rate METERSIf (GF this patient is -A merican, then multiply theresult by 1.210. Globulin 1.3 - 3.2 gm/dL High No Dec 15 [Mass/vol informati 2016 6:45 ume] in on in PM Serum source data Glucose 74 - 106 mg/dL High Dec 15 [Mass/vol 2016 6:45 ume] in CRITICAL PM Serum or RESULTS Plasma RESU LTS CALLED TO: [email or web address] 12/15/16 1909 TIMOTEO JASON Potassium 3.5 - 5.1 mmoL/L Normal No Dec 15 informati 2016 6:45 [Moles/vo on in PM lume] in source Serum or data Plasma Sodium 136 - 145 mmoL/L Low No Dec 15 [Moles/vo informati 2016 6:45 lume] in on in PM Serum or source Plasma data Aspartate 15 - 37 U/L Normal No Dec 15 informati 2016 6:45 aminotran on in PM sferase source [Enzymati data c activity/ volume] in Serum or Plasma Alanine 12 - 78 U/L Normal No Dec 15 aminotran informati 2016 6:45 sferase on in PM [Enzymati source c data activity/ volume] in Serum or Plasma Protein 6.4 - 8.2 gm/dL Normal No Dec 15 [Mass/vol informati 2016 6:45 ume] in on in PM Serum or source Plasma data Lipase [Enzymatic activity/volume] in Serum or Plasma Observa Value Referen Units Interpr Notes Date tion ce etation Range Lipase 73 - 393 U/L Low No Dec 15 [Enzymati informati 2017 6:45 c on in PM activity/ source volume] data in Serum or Plasma
--- OUTSIDE RECORDS SUMMARY | 2016-12-15 20:19 | External Medical Summary Rpt ---
Author Author LORENZA Ornelas, LOR[employer]ZA [employer] Organization [employer] Address Unknown Phone Unavailable [...]
[2016-12-16] VITALS (10 sets, daily range): BP systolic 109–151; BP diastolic 45–65
[2016-12-16 06:53] LABS: LYMPH # 1.7 K/mm3 (0.7-4.5); LYMPH % 12.4 % (10-50.0)
[2016-12-16 07:15] LABS: HEMOGLOBIN 11.9 g/dL (12.2-16.2)
--- NOTE | 2016-12-16 07:19 | PHARMACY CLINIC NOTE ---
Patient Demographics Patient Demographics Admission date: 12/15/16 Date: 12/16/16 Time: 718 Allergies Coded Allergies: albuterol (04/25/15) enalapril (04/25/15) fluticasone (04/25/15) lorazepam (04/25/15) propranolol (04/25/15) HEIGHT- FT: 5 IN: 4.00 K.782 VTE General Information Labs: Laboratory Tests 12/16 12/15 0630 1845 Hematology Hgb (12.2 - 16.2 g/dL) 11.9 L 14.1 Hct (37.0 - 47.0 %) 36.3 L 43.1 Plt Count (142 - 424 K/mm3) 102 L 169 Disclaimer The following section includes nursing documentation that has been pulled in for pharmacy review. Patient's VTE score: 2 Patient's VTE Risk: VERY LOW RISK Clinical trial participant? No VTE prophylaxis [id number] VTE prophylaxis ordered? Yes Type of prophylaxis/treatment: ALEAH at 0719
--- NOTE | 2016-12-16 08:53 | HISTORY AND PHYSICAL REPORT ---
Demographics: Admit date: 12/16/16 Chief complaint: vomiting PRIMARY DIAGNOSIS: ACUTE RENAL FAILURE Allergies: Coded Allergies: albuterol (04/25/15) enalapril (04/25/15) fluticasone (04/25/15) lorazepam (04/25/15) propranolol (04/25/15) History of present illness: History of present illness: this wf who has over the last few days had lower abd and back pain with dec po intake and vomiting - pt with reported fever and was seen in the ed and found to have abn ct and uti - pt was admitted for ivf and abx Past medical history: Family HX Family Hx Insignificant Yes Immunization HX DT/Tetanus Unknown Flu NEVER Pneumonia Unknown TB Test in last year No General CAD? No Angina: Yes MS: No Hypertension? Yes Hyperlipidemia? Yes CHF? No DVT? No PE? No COPD? Yes Asthma? Yes Anemia? No GERD? No Gastric ulcers? No GI Bleed? No Hernia? Yes Thyroid Problems? No Hypothyroidism? No CVA? No Seizures? No Diabetes? Yes Insulin Dependent: No Insulin Pump: No Home FSBS? No Renal Insuffiency? No UTI? Yes Stones? No BPH? No GB Disease: Yes Nephritic Syndrome? No Asplenia? No Hepatitis? No Sickle Cell Disease? No Arthritis? No Migraines? No Cataracts? Yes Glaucoma? No MRSA? No HIV? No TB? No Anxiety? No Depression? No Cancer? No More? 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 No Patien't marital status is Patient's support system is good Review of systems: Constitutional see HPI, fever, weakness. Eyes No: drainage. Ears, Nose, Mouth, Throat No ear discharge, No epistaxis, No throat pain Respiratory No: cough, shortness of breath, wheezing. Cardiovascular No chest pain, No palpitations, No syncope Gastrointestinal/Abdominal see HPI, No constipated, nausea, poor appetite, poor fluid intake, vomiting Genitourinary No: dysuria, frequency, hesitancy, hematuria. Musculoskeletal No: back pain, joint pain, joint swelling, neck pain. Skin No: rash. Neurological No: tingling, seizure disorder. Psychiatric No: anxious, depressed. Exam: Lab data for last 24 hours: Laboratory Tests 12/16/16 0630: Sodium 135 L, Potassium 4.3, Chloride 100, Carbon Dioxide 26, BUN 33 H, Creatinine 2.2 H, Estimated Creat Clear 24 L, Estimated GFR (MDRD) 22 L, Glucose 245 H, Calcium 8.4 L, WBC 14.0 H, RBC 3.99 L, Hgb 11.9 L, Hct 36.3 L, MCV 91.0, RDW 14.2, Plt Count 102 L, MPV 10.1, Gran % 83.7 H, Gran # 11.7 H, Lymphocytes % 12.4, Monocytes % 3.7, Eosinophils % 0.1, Basophils % 0.2, Lymphocytes # 1.7, Monocytes # 0.5, Eosinophils # 0.0, Basophils # 0.0, PUBS MCHC 32.4, MCH 29.5 12/16/16 0620: POC Glucose 228 H 12/16/16 0010: Lactic Acid 4.5 H 12/15/165: Lactic Acid 4.1 H 12/15/16 1925: Urine Color YELLOW, Urine Appearance CLOUDY, Urine pH 5.0, Ur Specific [place] > = 1.030, Urine Protein 2+ H, Urine Ketones NEGATIVE, Urine Blood 3+ H, Urine Nitrate NEGATIVE, Urine Bilirubin NEGATIVE, Urine Urobilinogen 0.2, Ur Leukocyte Esterase TRACE H, Urine RBC 3-5, Urine WBC 10-20, Ur Squamous Epith Cells NONE, Amorphous Sediment 1+, Urine Bacteria 2+, Urine Mucus 3+, Urine Glucose 2+ H 12/15/16 1845: Creatine Kinase 516 H, CK-MB (CK-2) Rel Index 0.9, CK and CKMB Interp 4.6 H, Troponin I < 0.02 12/15/16 1845: Sodium 129 L, Potassium 3.9, Chloride 92 L, Carbon Dioxide 23, BUN 25 H, Creatinine 2.1 H, Estimated Creat Clear 28 L, Estimated GFR (MDRD) 23 L, Glucose 407 H, Calcium 9.1, Total Bilirubin 0.6, AST 32, ALT 28, Alkaline Phosphatase 116, Total Protein 7.4, Albumin 3.2 L, Globulin 4.2 H, Albumin/ Globulin Ratio 0.8 L, Amylase 23 L, Lipase 52 L, WBC 17.3 H, RBC 4.81, Hgb 14.1, Hct 43.1, MCV 89.7, RDW 14.1, Plt Count 169, MPV 9.4, Gran % 85.0 H, Gran # 14.7 H, Total Counted 100, Lymphocytes % 9.3 L, Monocytes % 5.1, Eosinophils % 0.3, Basophils % 0.2, Neutrophils 73, Band Neutrophils 9 H, Lymphocytes ( Manual) 14, Lymphocytes # 1.6, Monocytes (Manual) 3, Monocytes # 0.9, Eosinophils # 0.1, Basophils # 0.0, Basophils # (Manual) 1, RBC/WBC/PLT Morphology NORMAL, Platelet Estimate CLUMPED, PUBS MCHC 32.7, MCH 29.3, Acetone Level NONE DETECTED Microbiology 12/15 2024 BLOOD: Anaerobic Blood Culture - RECD 12/15 2024 BLOOD: Aerobic Blood Culture - RECD 12/15 2024 BLOOD: Anaerobic Blood Culture - RECD 12/15 2024 BLOOD: Aerobic Blood Culture - RECD 12/15 2006 BLOOD: Anaerobic Blood Culture - CAN Cancelled: @ DUPLICATE ORDER 12/15 2006 BLOOD: Aerobic Blood Culture - CAN Cancelled: @ DUPLICATE ORDER 12/15 2006 BLOOD: Anaerobic Blood Culture - ORD 12/15 2006 BLOOD: Aerobic Blood Culture - ORD 12/15 1924 URINE CATH: Urine Culture - RES Admission vital signs: 1ST Vital Signs Result Date Time Pulse Ox 94 12/15 181 B/P 133/50 12/15 181 Temp 98.8 12/15 1810 Pulse 80 12/15 1811 Resp 18 12/15 181 O2 Delivery ROOM AIR 12/16 0000 Exam General appearance: alert Eyes: conjunctiva clear, PERRLA ENT: dry mucous membranes Neck: no JVD Cardiovascular: regular rate & rhythm Respiratory: no respiratory distress ABD: soft, no organomegaly Genitourinary: no hematuria Extremities: moves all Musculoskeletal: equal muscle strength Skin: dry Neuro: alert, price accuracy supervisor II-XII nml as tested Plan: Problem List 1. Acute renal failure 2. Urinary tract infection 3. Hyperglycemia 4. Tobacco use Plan: will give abx and ivf at this time at 0800
[2016-12-16] MEDS ORDERED: ROSUVASTATIN CA10 MG PO (09:52)
--- NOTE | 2016-12-16 12:05 | RADIOLOGY REPORT PS360 ---
CT ABD PELVIS W/O CONTRAST CLINICAL INDICATION: Nausea, vomiting, abdominal pain, right-sided abdominal pain with nausea and vomiting and diarrhea N/V/D X5 DAYS ORDERING PHYSICIAN: Benito Deutsch MD PATIENT AGE: 66 years COMPARISON: 03/11/2012 TECHNIQUE: Axial images obtained with sagittal and coronal reformats. PROCEDURE: Oral Contrast: None IV Contrast: None . FINDINGS: Emphysematous changes are present in the lung bases. There is a 4 mm noncalcified nodule in the left lower lobe laterally and posteriorly. There has been prior cholecystectomy. There is mild diffuse fatty liver involvement. No biliary dilatation. The spleen and pancreas are unremarkable. Motion artifact does somewhat obscure fine detail of the upper abdomen. Left adrenal nodule present as before somewhat difficult to evaluate due to motion may be slightly larger. EXAM without with contrast and without motion value to determine stability of the left renal enlargement. Mild right hydronephrosis and hydroureter. A definite ureteral stone is not identified. There is moderate stranding of the right perinephric and proximal periureteral fat with thickening of the anterior pararenal fascia on the right. There is a 2 cm left renal cortical cyst. Urinary bladder has an unremarkable appearance. There is mild thickening of the ascending, transverse, sigmoid colon versus nondistention. No evidence of appendicitis or diverticulitis. There is a moderate amount of gas within the urinary bladder. IMPRESSION: 1. Mild right hydronephrosis and hydroureter with stranding of the perinephric fat. This could be due to recently passed stone. Bladder even tumor at the UVJ could have a similar appearance. Urinary tract infection also considered. 2. Moderate amount of air within urinary bladder. Has the patient had recent urinary bladder catheterization? If not then, infection or fistula is considered.
[2016-12-17 03:36] VITALS: BP 143/58
[2016-12-17 07:33] LABS: HEMOGLOBIN 11.6 g/dL (12.2-16.2); LYMPH % 8.9 % (10-50.0)
--- NOTE | 2016-12-17 07:42 | ACUTE CARE PROGRESS NOTE (QUA) ---
Progress Notes Subjective Date 12/17/16 Time 0738 Note sob Patient/family reports: shortness of breath Nursing reports: shortness of breath Objective Findings Last VS-Temp:98.9 B/P:143/58 Pulse:87 Resp:18 SaO2:93 ROOM AIR Last weight lbs:134 oz:0 K.782 Method:Bed Scales Exam General appearance: alert Eyes: anicteric, PERRLA ENT: dry mucous membranes Neck: no JVD Cardiovascular: regular rate & rhythm Respiratory: no respiratory distress, diminished breath sounds ABD: soft Genitourinary: no hematuria Extremities: moves all Musculoskeletal: equal muscle strength Skin: dry Neuro: alert, museum exhibit technician II-XII nml as tested Reviewed: allergies, medications, vital signs, lab results Assessment/Plan Problem List 1. Acute renal failure 2. Urinary tract infection 3. Hyperglycemia 4. Tobacco use 5. Gram-negative bacteremia Patient condition Guarded Plan: continue current care, make medication changes, order additional tests This inpt stay is expected to cross 2 MNs from start of care Yes Comments: will check echo and cxr and dec fluids and check culture at this time at 0741
--- NOTE | 2016-12-17 07:42 | ACUTE CARE PROGRESS NOTE (QUA) ---
Progress Notes Subjective Date 12/17/16 Time 0738 Note sob Patient/family reports: shortness of breath Nursing reports: shortness of breath Objective Findings Last VS-Temp:98.9 B/P:143/58 Pulse:87 Resp:18 SaO2:93 ROOM AIR Last weight lbs:134 oz:0 K.782 Method:Bed Scales Exam General appearance: alert Eyes: anicteric, PERRLA ENT: dry mucous membranes Neck: no JVD Cardiovascular: regular rate & rhythm Respiratory: no respiratory distress, diminished breath sounds ABD: soft Genitourinary: no hematuria Extremities: moves all Musculoskeletal: equal muscle strength Skin: dry Neuro: alert, translator II-XII nml as tested Reviewed: allergies, medications, vital signs, lab results Assessment/Plan Problem List 1. Acute renal failure 2. Urinary tract infection 3. Hyperglycemia 4. Tobacco use 5. Gram-negative bacteremia Patient condition Guarded Plan: continue current care, make medication changes, order additional tests This inpt stay is expected to cross 2 MNs from start of care Yes Comments: will check echo and cxr and dec fluids and check culture at this time at 0741
[2016-12-17 07:49] VITALS: BP 138/79
[2016-12-17 10:19] LABS: NEUTROPHILS 80 % (42-76)
--- NOTE | 2016-12-17 10:54 | RADIOLOGY REPORT PS360 ---
CHEST-PORTABLE HISTORY: Shortness of breath sob ORDERING PHYSICIAN: Jose Juan Villa MD PATIENT AGE: 66 years COMPARISON: 03/16/2014 FINDINGS: The cardiomediastinal silhouette and pulmonary vascularity are within normal limits. There is a 11 mm left perihilar nodular opacity. This could be related to an overlapping vessel however does appear more prominent compared to prior upright PA chest of 03/16/2014. Recommend upright PA and lateral chest when patient can tolerate. If this does appear more prominent on that study then, CT may be needed for further evaluation. No lobar consolidation or collapse. No acute bony abnormalities. IMPRESSION: 1. No acute finding. 2. Left perihilar nodular opacity. Suggest upright PA and lateral chest for further evaluation
--- NOTE | 2016-12-17 13:55 | RADIOLOGY REPORT PS360 ---
PROCEDURE: 2-D M-mode and color Doppler study INDICATIONS FOR THE TEST: Chest pain + COPD+ Heart Murmur Tobacco Smoking+ Palpitations Fatigue+ Syncope Edema Hypertension+Diabetes Mellitus+ Rheumatic Fever SOB+RICKETTS Obesity Hyperlipidemia+ Family History HD Additional History AFR, UTI PATIENT INFORMATION HEIGHT:64 WEIGHT:134 GENDER: Female B/P:133/50 2-D/M-MODE INTERPRETATION: 2-D MEASUREMENTS OBSERVED VALUES IN CMS Right Ventricular Dimension (RVDd) 2.4 Interventricular Septum (Thickness)(IVsd) 0.9 Left Ventricular Internal Dimensions(LVIDd) 5.1 Left Ventricular Posterior Wall (Thickness)(LVPWd) 0.9 Aortic Root 2.9 Aortic Cusp Separation 1.9 Left Atrial Dimensions (LAD) 4.5 2D 1. Left atrium is moderately enlarged, left ventricle is normal size, there is no concentric left ventricular hypertrophy, visually estimated ejection fraction 55% with no obvious regional wall motion abnormality. 2. The right atrium is mildly enlarged, right ventricle is mildly dilated with normal contractility. 3. The aortic valve is minimally thickened and fibrosed. 4. The mitral and tricuspid valvular minimally thickened. 5. The pulmonic valve is not well visualized. 6. No significant pericardial effusion noted. DOPPLER INTERROGATION: Doppler interrogation of the aortic mitral and tricuspid valvular presence of mild mitral and tricuspid regurgitation, tricuspid regurgitant jet velocity insufficient for calculation of the right ventricular systolic pressure, diastolic parameters are within normal range. CONCLUSION: 1. Biatrial enlargement, normal left ventricular size, preserved left ventricular systolic function, visually estimated ejection fraction 55% with no obvious regional wall motion abnormality, diastolic parameters are within normal range. 2. Mildly enlarged right ventricle with normal contractility. 3. Mild mitral and tricuspid regurgitation. 4. No significant pericardial effusion noted.
[2016-12-17 16:44] VITALS: BP 146/88
[2016-12-17 20:39] VITALS: BP 146/88
[2016-12-17 21:04] VITALS: BP 125/56
[2016-12-18 03:48] VITALS: BP 136/70
[2016-12-18 07:38] VITALS: BP 173/60
--- NOTE | 2016-12-18 08:45 | ACUTE CARE PROGRESS NOTE (QUA) ---
Progress Notes Subjective Date 12/18/16 Time 0842 Note doing better Patient/family reports: feeling better Nursing reports: no complaints Objective Findings Last VS-Temp:98.5 B/P:173/60 Pulse:79 Resp:20 SaO2:93 ROOM AIR Last weight lbs:134 oz:0 K.782 Method:Bed Scales Exam General appearance: alert, active Eyes: PERRLA ENT: dry mucous membranes Neck: no JVD Cardiovascular: regular rate & rhythm, murmur Respiratory: no respiratory distress ABD: soft Genitourinary: no hematuria Extremities: moves all Musculoskeletal: equal muscle strength Skin: dry Neuro: alert, computer meteorologist II-XII nml as tested Reviewed: allergies, medications, vital signs, lab results Assessment/Plan Problem List 1. Acute renal failure 2. Urinary tract infection 3. Hyperglycemia 4. Tobacco use 5. Gram-negative bacteremia Patient condition Improving Plan: make care level transfer This inpt stay is expected to cross 2 MNs from start of care Yes Comments: will change to swing bed today for completion of abx at 0844
--- NOTE | 2016-12-18 08:45 | ACUTE CARE PROGRESS NOTE (QUA) ---
Progress Notes Subjective Date 12/18/16 Time 0842 Note doing better Patient/family reports: feeling better Nursing reports: no complaints Objective Findings Last VS-Temp:98.5 B/P:173/60 Pulse:79 Resp:20 SaO2:93 ROOM AIR Last weight lbs:134 oz:0 K.782 Method:Bed Scales Exam General appearance: alert, active Eyes: PERRLA ENT: dry mucous membranes Neck: no JVD Cardiovascular: regular rate & rhythm, murmur Respiratory: no respiratory distress ABD: soft Genitourinary: no hematuria Extremities: moves all Musculoskeletal: equal muscle strength Skin: dry Neuro: alert, psychodramatist II-XII nml as tested Reviewed: allergies, medications, vital signs, lab results Assessment/Plan Problem List 1. Acute renal failure 2. Urinary tract infection 3. Hyperglycemia 4. Tobacco use 5. Gram-negative bacteremia Patient condition Improving Plan: make care level transfer This inpt stay is expected to cross 2 MNs from start of care Yes Comments: will change to swing bed today for completion of abx at 0844
--- NOTE | 2016-12-18 08:58 | DISCHARGE SUMMARY STANDARD ---
See Addendum Demographics Admit date: 12/16/16 Discharge date: 12/18/16 History of present illness History of present illness this wf who has over the last few days had lower abd and back pain with dec po intake and vomiting - pt with reported fever and was seen in the ed and found to have abn ct and uti - pt was admitted for ivf and abx Hospital Course Hospital Course: pt has dec po intake and fever with back pain and was admitted with ivf and abxc with poor po intake- pt with slow improvement and has e coli bacteremia and will be addmitted to swing bed for iv abx Discharge diagnoses Problem List 1. Acute renal failure 2. Urinary tract infection 3. Hyperglycemia 4. Tobacco use 5. Gram-negative bacteremia Medications Medications: Discharge meds are as noted. Follow up Follow up in office in: 12 DAYS with: Jose Juan Villa MD at 0858
[2016-12-18 09:27] VITALS: BP 173/60
[2016-12-18] MEDS ORDERED: ATENOLOL100 MG PO (10:52)
[2016-12-18] MEDS ORDERED: LISINOPRIL 10MG10 MG PO (10:53)
== END 2016-12-18 09:42 | disposition swing bed (61) | DRG 683 ==
LOC: ER 18:08 → 2ND 20:11
PROVIDERS: Emergency Medicine
DX: N17.9 Acute kidney failure, unspecified (principal); N39.0 Urinary tract infection, site not specified; R78.81 Bacteremia; J44.9 Chronic obstructive pulmonary disease, unspecified; I10 Essential (primary) hypertension; B96.20 Unspecified Escherichia coli [E. coli] as the cause of diseases classified elsewhere; Z72.0 Tobacco use; E11.65 Type 2 diabetes mellitus with hyperglycemia
CPT/HCPCS: J2405

== ENCOUNTER 2016-12-18 09:42 | Inpatient (IN) | payer MEDICARE, MEDICAID ==
[~2016-12-18] VITALS: Ht 162.6 cm; Wt 59.6 kg
[2016-12-18 09:00] VITALS: BP 144/74
--- NOTE | 2016-12-18 09:05 | DISCHARGE SUMMARY STANDARD ---
Swing bed discharge from acute Admit date: 12/16/16 Chief complaint: back pain Primary diagnosis: gram neg bacteremia Allergies: Coded Allergies: albuterol (04/25/15) enalapril (04/25/15) fluticasone (04/25/15) lorazepam (04/25/15) propranolol (04/25/15) Additional information: this wf admitted and noted to have gram neg- e coli bacteremia Swing bed components Discharge from acute: 12/18/16 Admit to Swin12/18/16 Rehab Potential: Good Mental status: Average Prognosis: good History of present illness: this wf who has over the last few days had lower abd and back pain with dec po intake and vomiting - pt with reported fever and was seen in the ed and found to have abn ct and uti - pt was admitted for ivf and abx Past medical history Family HX: Diabetes No CAD Yes Hypertension Yes Hyperlipidemia No Cancer Yes TB No Immunization HX: DT/Tetanus Unknown Flu NEVER Pneumonia Unknown TB Test in last year No General CAD? No Angina: Yes NH: No Hypertension? Yes Hyperlipidemia? Yes CHF? No DVT? No PE? No COPD? Yes Asthma? Yes Anemia? No GERD? No Gastric ulcers? No GI Bleed? No Hernia? Yes Thyroid Problems? No Hypothyroidism? No CVA? No Seizures? No Diabetes? Yes Insulin Dependent: No Insulin Pump: No Home FSBS? No Renal Insuffiency? No UTI? Yes Stones? No BPH? No GB Disease: Yes Nephritic Syndrome? No Asplenia? No Hepatitis? No Sickle Cell Disease? No Arthritis? No Migraines? No Cataracts? Yes Glaucoma? No MRSA? No HIV? No TB? No Anxiety? No Depression? No Cancer? No More? No Surgical HX: Previous Surgery?Y Tubal Ligation GALLBLADDER CATARACTS ORAL SURGERY SUPER PUBIC VAGINAL SLING Current home meds: Discontinued Scripts CEPHALEXIN (Keflex 500MG Capsule) 500 MG PO Q8H #21 CAP Prov: 12/28/12 DC: 12/18/16 0847 APAP 300MG W/CODEINE 30MG (Acetaminophen-Cod #3 Tablet) 1 TAB PO Q6HP #10 TAB Prov: 12/28/12 DC: 12/18/16 0847 Reported Medications Amlodipine Besylate (Amlodipine) 5 MG PO DAILY #30 TAB 30 Days Atenolol (Atenolol) 100 MG PO BID LISINOPRIL (Lisinopril) 10 MG PO DAILY Discontinued Reported Medications Lisinopril (Lisinopril 40MG) 40 MG PO DAILY #30 TAB 30 Days DC: 12/18/16 0847 Atenolol (Atenolol) Social history Smoking Hx: Tobacco: No Smoker: Unknown if Ever Smoked Type: Cigarettes Packs/day: 1 1/2 - 2 Packs Are you/the child exposed to second-hand smoke: Yes Alcohol use: Alcohol: No Hx of Drug Use: Drug Use? No Patien't marital status is: Patient's support system is: good Additional information: pt with poor po intake Review of systems Constitutional see HPI, chills, fever, weakness. Eyes No: drainage. Ears, Nose, Mouth, Throat No ear discharge, No epistaxis, No throat pain Respiratory No: cough, shortness of breath, wheezing. Cardiovascular No chest pain, No palpitations, No syncope Gastrointestinal/Abdominal see HPI, No nausea, No poor appetite, No poor fluid intake, No vomiting Genitourinary No: dysuria, frequency, hesitancy, hematuria. Musculoskeletal see HPI, back pain. No: joint pain, joint swelling, neck pain. Skin No: rash. Neurological No: headache, tingling. Psychiatric No: depressed. Exam Lab data for last 24 hours: Laboratory Tests 12/18/16 0600: POC Glucose 288 H 12/17/16 2029: POC Glucose 236 H 12/17/16 1713: POC Glucose 263 H 12/17/16 1207: POC Glucose 350 *H Admission vital signs: 1ST Vital Signs Result Date Time Pulse Ox 94 12/15 1811 B/P 133/50 12/15 181 Temp 98.8 12/15 1811 Pulse 80 12/15 1811 Resp 18 12/15 1811 O2 Delivery ROOM AIR 12/16 0000 Exam: General appearance: alert Eyes: anicteric, PERRLA ENT: dry mucous membranes Neck: no JVD Cardiovascular: regular rate & rhythm, murmur Respiratory: no respiratory distress, diminished breath sounds ABD: soft Genitourinary: no hematuria Extremities: moves all Musculoskeletal: equal muscle strength Skin: dry Neuro: alert, catering associate II-XII nml as tested Hospital Course pt slowly improved with po intake and mobility and was noted to have gram neg sepsis- e coli and will need 10 iv course Medications: Discharge meds are as noted. Problem list: 1. Gram-negative bacteremia 2. Hyperglycemia 3. Dehydration Plan: will do therapy and iv abx
[~2016-12-18 09:42] MED LIST changes: -AMLO5TAB PO; +ROSUVASTATIN CA10 MG PO
--- OUTSIDE RECORDS SUMMARY | 2016-12-18 09:49 | External Medical Summary Rpt ---
Author Author , LORENZA JOHNLINSEY Address Unknown Phone [email or web address] Care Team Providers Care Mosaic Layer Name Role Phone [facility], Unavailable Unavailable [facility] Mary Villa MD, Unavailable Unavailable Mary Villa MD [facility] Unavailable Unavailable [id number] # [phone], [facility] [id number] # [phone] Purpose Continuity of Care Document - 08-19-2009 through 2016 Problems Code Diagnosis DOS Provider Status 527.2 527.2 12-28-2012 [facility] E11.9 TYPE 2 DIABETES MELLITUS WITHOUT COMPLICATIO NS E78.4 OTHER HYPERLIPIDE SHRUTHI E86.0 DEHYDRATION K52.9 NONINFECTIV E GASTROENTER ITIS AND COLITIS, UNSPECIFIED N17.9 ACUTE KIDNEY FAILURE, UNSPECIFIED N39.0 URINARY TRACT INFECTION, SITE NOT SPECIFIED R73.9 HYPERGLYCEM IA, UNSPECIFIED Z01.419 ENCNTR FOR CARDIO CLINICIAN EXAM (GENERAL) (ROUTINE) W/O ABN FINDINGS Z12.31 [...] 10 8- 5- 00 45 HE ve IN 40 20 20 AI NS IL 90 [...] 10 8- 6- 00 45 HE ve IN 40 20 20 AI NS IL 90 [...] .0 TE 28 EP ti NO 10 8 45 HE ve IN 40 20 20 AI NS IL 90 10 11 D 1 PH DO 40 AR N MA R MG CY TA 03 BL 93 ET 8 # 03 93 RA 00 08 08 [address] Ac NI 17 -1 -1 .0 TE 46 EP ti TI 24 2- 2- 74 HE ve DI 35 20 20 AI NS NE 74 11 11 D 9 PH DO 15 AR N 0 MA R MG CY TA 03 BL 93 ET 8 # 03 93 AT 00 09 07 11 [address] Ac EN 09 -2 -1 .0 TE 09 EP ti OL 30 2 8 65 HE ve OL 75 20 20 AI NS 30 10 11 D 10 1 PH DO 0 AR N MG MA R CY TA BL 03 ET 93 8 # 03 93 LI 68 12 07 [address] Ac SI 18 -1 -1 .0 TE 28 EP ti NO 00 8 8 45 HE ve IN 51 20 20 AI NS IL 70 [...] 00 8- 6- 00 45 HE ve IN 51 20 20 AI NS IL 70 [...] TE 09 EP ti OL 30 2- 9 00 65 HE ve OL 75 20 20 AI NS 30 10 11 D 10 1 PH DO 0 AR N MG MA R CY TA BL 03 ET 93 8 # 03 93 63 12 03 [address] Ac 30 -1 -1 .0 TE 28 EP ti 40 8- 9 00 45 HE ve 53 20 20 AI NS 50 10 11 D 1 PH DO AR N MA R CY 03 93 8 # 03 93 AT 00 09 02 11 [address] Ac EN 09 -2 -1 .0 TE 09 EP ti OL 30 2 7 00 65 HE ve OL 75 20 [...] CY 03 93 8 # 03 93 CY 00 02 02 1 [address] Ac CL 37 -0 -0 .0 TE 98 EP ti OB 80 9 9 88 HE ve EN 75 20 20 AI NS ZA 11 11 11 D IN 0 PH DO IN AR N E [...] BL 93 ET 8 # 03 93 TR 00 02 02 [address] Ac AM 09 -0 -0 .0 TE 98 EP ti AD 30 9 9 00 86 HE ve OL 05 20 20 AI NS 80 11 11 D HC 1 PH DO L AR N 50 MA R CY MG 03 TA 93 BL 8 ET # 03 93 AT 00 09 01 [...] E 8 # 03 93 00 03 10 [...] 82 1- 1- 00 58 HE ve IN 07 20 20 AI NS IL 50 10 10 D 1 PH DO 20 AR N MA R MG CY TA 03 BL 93 ET 8 # 03 93 00 03 05 [...] 31 4- 8- 00 11 HE ve MT 04 20 20 AI NS N 80 [...] 82 1- 4- 00 58 HE ve IN 07 20 20 AI NS IL 50 [...] 31 4- 4- 00 11 HE ve MT 04 20 20 AI NS N 80 [...] 82 1- 1- 00 58 HE ve IN 07 20 20 AI NS IL 50 [...] O2% 98 % Respiratory 18 /min Rate Results Labs Lab Lab Date Result Refere Interp Status Commen Order Detail nces retati t Range on Differential panel, method unspecified - (12-17-2016 06:30) LYMPH 13 % 10% - Normal complet 017 50% ed 06:30 Platele MARKED complet ts 017 DECREAS ed [Presen 06:30 E ce] in Blood by Light microsc opy Bacteria identified in Blood by Aerobe culture (12-15-2016 20:25) Bacteri RESULTS complet a 017 : GRAM ed identif 20:25 STAIN: ied in GNR Blood PCR: by Aerobe culture Bacteri RESULTS complet a 017 CALLED ed identif 20:25 TO: ied in JIMMY Blood EMERITA by Aerobe 7 0916 culture Margarita Jean-Baptiste Bacteri Escheri complet a 017 bernadine ed identif 20:25 coli ied in Blood by Aerobe culture Bacteria identified in Blood by Anaerobe culture (12-15-2016 20:25) Bacteri RESULTS complet a 017 : GRAM ed identif 20:25 STAIN: ied in GNR Blood PCR: by Anaerob e culture Bacteri RESULTS complet a 017 CALLED ed identif 20:25 TO: ied in JIMMY Blood EMERITA by Anaerob 7 0916 e memo Jean-Baptisteinda Bacteri Escheri complet a 017 bernadine ed identif 20:25 coli ied in Blood by Anaerob e culture Bacteria identified in Urine by Culture (12-15-2016 19:25) Bacteri Escheri complet a 017 bernadine ed identif 19:25 coli ied in Urine by Culture Differential panel, method unspecified - (12-15-2016 18:45) LYMPH 14 % 10% - Normal complet 017 50% ed 18:45 Platele CLUMPED complet ts 017 ed [Presen 18:45 ce] in Blood by Light microsc opy Erythro NORMAL complet cyte 017 ed morphol 18:45 ogy finding [Identi fier] in Blood Encounters Encounter Start End Date Code Location Performer Type Date Emergency JADE Villa MD (ER) 3 12:59 3 13:56 [facility]
--- OUTSIDE RECORDS SUMMARY | 2016-12-18 09:49 | External Medical Summary Rpt ---
Author Author , LORENZA JOHNLINSEY Address Unknown Phone [email or web address] Care Team Providers Care Delphi Developer Name Role Phone [facility], Unavailable Unavailable [facility] Mary Villa MD, Unavailable Unavailable Mary Villa MD [facility] Unavailable Unavailable [id number] # [phone], [facility] [id number] # [phone] Purpose Continuity of Care Document - 08-19-2009 through 2016 Problems Code Diagnosis DOS Provider Status 527.2 527.2 12-28-2012 [facility] E11.9 TYPE 2 DIABETES MELLITUS WITHOUT COMPLICATIO NS E78.4 OTHER HYPERLIPIDE SHRUTHI E86.0 DEHYDRATION K52.9 NONINFECTIV E GASTROENTER ITIS AND COLITIS, UNSPECIFIED N17.9 ACUTE KIDNEY FAILURE, UNSPECIFIED N39.0 URINARY TRACT INFECTION, SITE NOT SPECIFIED R73.9 HYPERGLYCEM IA, UNSPECIFIED Z01.419 ENCNTR FOR HOOKING MACHINE OPERATOR EXAM (GENERAL) (ROUTINE) W/O ABN FINDINGS Z12.31 [...] ti NO 10 8 45 HE ve NV 40 20 20 [...] NO 00 8 8 45 HE ve NV 51 20 20 [...] 31 4- 8- 00 11 HE ve MS 04 20 20 AI NS N 80 [...] 31 4- 4- 00 11 HE ve MS 04 20 20 AI NS N 80 [...] Villa MD (ER) 3 12:59 3 13:56 [facility]
--- OUTSIDE RECORDS SUMMARY | 2016-12-18 09:51 | External Medical Summary Rpt ---
Demographics Preferred Language Occitan Marital Status Unknown Sikhism Affiliation Unknown Race Unknown Ethnic Group Unknown Author Author , LORENZA BRITT Address Unknown Phone [email or web address] Care Team Providers Care Campaign Marketing Specialist Name Role Phone [facility], Unavailable Unavailable [facility] Unavailable Unavailable [id number] # [phone], [facility] [id number] # [phone] Purpose Continuity of Care Document [...] 10 8- 5- 00 45 HE ve PA 40 20 20 AI NS IL 90 [...] 10 8- 6- 00 45 HE ve PA 40 20 20 AI NS IL 90 [...] 10 8- 8- 00 45 HE ve PA 40 20 20 AI NS IL 90 [...] 00 8- 8- 00 45 HE ve PA 51 20 20 AI NS IL 70 [...] 00 8- 6- 00 45 HE ve PA 51 20 20 AI NS IL 70 [...] AI NS ZA 11 11 11 D PA 0 PH DO IN AR N E [...] 82 1- 1- 00 58 HE ve PA 07 20 20 AI NS IL 50 [...] 31 4- 8- 00 11 HE ve TX 04 20 20 AI NS N 80 [...] 82 1- 4- 00 58 HE ve PA 07 20 20 AI NS IL 50 [...] 31 4- 4- 00 11 HE ve TX 04 20 20 AI NS N 80 [...] ti NO 82 1- 58 HE ve PA 07 20 20 AI NS IL 50 [...]
--- OUTSIDE RECORDS SUMMARY | 2016-12-18 09:51 | External Medical Summary Rpt ---
Demographics Preferred Language Yoruba Marital Status Unknown Adventist Affiliation Unknown Race Unknown Ethnic Group Unknown Author Author , LORENZA BRITT Address Unknown Phone [email or web address] Care Team Providers Care Private Branch Exchange Repairer Name Role Phone [facility], [facility]available [facility] Unavailable Unavailable [id number] # [phone], [facility] [id number] # [phone] Purpose Continuity of Care Document [...] 10 8- 5- 00 45 HE ve VA 40 20 20 AI NS IL 90 [...] 10 8- 6- 00 45 HE ve VA 40 20 20 AI NS IL 90 [...] 10 8- 8- 00 45 HE ve VA 40 20 20 AI NS IL 90 [...] 00 8- 8- 00 45 HE ve VA 51 20 20 AI NS IL 70 [...] 00 8- 6- 00 45 HE ve VA 51 20 20 AI NS IL 70 [...] AI NS ZA 11 11 11 D VA 0 PH DO IN AR N E [...] 82 1- 1- 00 58 HE ve VA 07 20 20 AI NS IL 50 [...] 82 1- 4- 00 58 HE ve VA 07 20 20 AI NS IL 50 [...] ti NO 82 1- 58 HE ve VA 07 20 20 AI NS IL 50 [...]
--- OUTSIDE RECORDS SUMMARY | 2016-12-18 09:51 | External Medical Summary Rpt ---
Demographics Preferred Language Lao Marital Status Unknown Religion Affiliation Unknown Race Unknown Ethnic Group Unknown Author Author , LORENZA BRITT Address Unknown Phone Immunization Unable to retrieve immunization data due to connection failure with Immunization Registry. Please try again later.
--- OUTSIDE RECORDS SUMMARY | 2016-12-18 09:51 | External Medical Summary Rpt ---
Demographics Preferred Language Macedonian Marital Status Unknown Jewish Affiliation Unknown Race Unknown Ethnic Group Unknown Author Author , LORENZA BRITT Address Unknown Phone Immunization Unable to retrieve immunization data due to connection failure with Immunization Registry. Please try again later.
--- OUTSIDE RECORDS SUMMARY | 2016-12-18 09:52 | External Medical Summary Rpt ---
Author Author LORENZA Ornelas, DORALINSEY [employer] Organization [employer] Address Unknown Phone Unavailable Results Viral susceptibility panel in Isolate Observa Value Referen Units Interpr Notes Date tion ce etation Range Is patient on antibiotics? N Ampicilli No ug/ml Susceptib No Dec 18 n informati le informati 2016 7:01 [Suscepti on in on in AM bility] source source by data data Minimum inhibitor y concentra tion (PARADISE) Amoxicill No ug/ml Susceptib No Dec 18 in+Clavul informati le informati 2016 7:01 anate on in on in AM [Suscepti source source bility] data data by Minimum inhibitor y concentra tion (PARADISE) Ceftazidi No ug/ml Susceptib No Dec 18 me+Clavul informati le informati 2016 7:01 anate on in on in AM [Suscepti source source bility] data data by Minimum inhibitor y concentra tion (PARADISE) Ceftriaxo No ug/ml Susceptib No Dec 18 ne informati le informati 2016 7:01 [Suscepti on in on in AM bility] source source by data data Minimum inhibitor y concentra tion (PARADISE) Cefazolin No ug/ml Susceptib No Dec 18 informati le informati 2016 7:01 [Suscepti on in on in AM bility] source source by data data Minimum inhibitor y concentra tion (PARADISE) Beta No ug/ml No No Dec 18 lactamase informati informati informati 2017 7:01 .extended on in on in on in AM spectrum source source source data data data [Suscepti bility] Ertapenem No ug/ml Susceptib No Dec 18 informati le informati 2016 7:01 [Suscepti on in on in AM bility] source source by data data Minimum inhibitor y concentra tion (PARADISE) Cefepime No ug/ml Susceptib No Dec 18 [Suscepti informati le informati 2017 7:01 bility] on in on in AM by source source Minimum data data inhibitor y concentra tion (PARADISE) Nitrofura No ug/ml Susceptib No Dec 18 ntoin informati le informati 2016 7:01 [Suscepti on in on in AM bility] source source by data data Minimum inhibitor y concentra tion (PARADISE) Gentamici No ug/ml Susceptib No Dec 18 n informati le informati 2016 7:01 [Suscepti on in on in AM bility] source source by data data Minimum inhibitor y concentra tion (PARADISE) Imipenem No ug/ml Susceptib No Dec 18 [Suscepti informati le informati 2016 7:01 bility] on in on in AM by source source Minimum data data inhibitor y concentra tion (PARADISE) Levofloxa No ug/ml Susceptib No Dec 18 arvin informati le informati 2016 7:01 [Suscepti on in on in AM bility] source source by data data Minimum inhibitor y concentra tion (PARADISE) Ampicilli No ug/ml Susceptib No Dec 18 n+Sulbact informati le informati 2016 7:01 am on in on in AM [Suscepti source source [facility]] data data by Minimum inhibitor y concentra tion (PARADISE) Trimethop No ug/ml Susceptib No Dec 18 rim+Sulfa informati le informati 2016 7:01 methoxazo on in on in AM le source source [Suscepti data data [facility]] by Minimum inhibitor y concentra tion (PARADISE) Tobramyci No ug/ml Susceptib No Dec 18 n informati le informati 2016 7:01 [Suscepti on in on in AM bility] source source by data data Minimum inhibitor y concentra tion (PARADISE) Piperacil No ug/ml Susceptib No Dec 18 seven+Tazob informati le informati 2016 7:01 actam on in on in AM [Suscepti source source [facility]] data data by Minimum inhibitor y concentra tion (PARADISE) Viral susceptibility panel in Isolate Observa Value Referen Units Interpr Notes Date tion ce etation Range Ampicilli No ug/ml Susceptib No Dec 18 n informati le informati 2016 6:51 [Suscepti on in on in AM bility] source source by data data Minimum inhibitor y concentra tion (PARADISE) Amoxicill No ug/ml Susceptib No Dec 18 in+Clavul informati le informati 2016 6:51 anate on in on in AM [Suscepti source source bility] data data by Minimum inhibitor y concentra tion (PARADISE) Ceftazidi No ug/ml Susceptib No Dec 18 me+Clavul informati le informati 2016 6:51 anate on in on in AM [Suscepti source source bility] data data by Minimum inhibitor y concentra tion (PARADISE) Ceftriaxo No ug/ml Susceptib No Dec 18 ne informati le informati 2016 6:51 [Suscepti on in on in AM bility] source source by data data Minimum inhibitor y concentra tion (PARADISE) Cefazolin No ug/ml Susceptib No Dec 18 informati le informati 2016 6:51 [Suscepti on in on in AM bility] source source by data data Minimum inhibitor y concentra tion (PARADISE) Beta No ug/ml No No Dec 18 lactamase informati informati informati 2016 6:51 .extended on in on in on in AM spectrum source source source data data data [Suscepti bility] Ertapenem No ug/ml Susceptib No Dec 18 informati le informati 2016 6:51 [Suscepti on in on in AM bility] source source by data data Minimum inhibitor y concentra tion (PARADISE) Cefepime No ug/ml Susceptib No Dec 18 [Suscepti informati le informati 2016 6:51 bility] on in on in AM by source source Minimum data data inhibitor y concentra tion (PARADISE) Nitrofura No ug/ml Susceptib No Dec 18 ntoin informati le informati 2016 6:51 [Suscepti on in on in AM bility] source source by data data Minimum inhibitor y concentra tion (PARADISE) Gentamici No ug/ml Susceptib No Dec 18 n informati le informati 2016 6:51 [Suscepti on in on in AM bility] source source by data data Minimum inhibitor y concentra tion (PARADISE) Imipenem No ug/ml Susceptib No Dec 18 [Suscepti informati le informati 2016 6:51 bility] on in on in AM by source source Minimum data data inhibitor y concentra tion (PARADISE) Levofloxa No ug/ml Susceptib No Dec 18 arvin informati le informati 2016 6:51 [Suscepti on in on in AM bility] source source by data data Minimum inhibitor y concentra tion (PARADISE) Ampicilli No ug/ml Susceptib No Dec 18 n+Sulbact informati le informati 2017 6:51 am on in on in AM [Suscepti source source bility] data data by Minimum inhibitor y concentra tion (PARADISE) Trimethop No ug/ml Susceptib No Dec 18 rim+Sulfa informati le informati 2017 6:51 methoxazo on in on in AM le source source [Suscepti data data bility] by Minimum inhibitor y concentra tion (PARADISE) Tobramyci No ug/ml Susceptib No Dec 18 n informati le informati 2017 6:51 [Suscepti on in on in AM bility] source source by data data Minimum inhibitor y concentra tion (PARADISE) Piperacil No ug/ml Susceptib No Dec 18 seven+Tazob informati le informati 2017 6:51 actam on in on in AM [Suscepti source source bility] data data by Minimum inhibitor y concentra tion (PARADISE) Glucose [Mass/volume] in Capillary blood by Glucometer Observa Value Referen Units Interpr Notes Date tion ce etation Range Glucose 70 - 110 mg/dl High No Dec 18 [Mass/vol informati 2017 6:00 ume] in on in AM Capillary source blood by data Glucomete r Glucose [Mass/volume] in Capillary blood by Glucometer Observa Value Referen Units Interpr Notes Date tion ce etation Range Glucose 70 - 110 mg/dl High No Dec 17 [Mass/vol informati 2017 8:29 ume] in on in PM Capillary source blood by data Glucomete r Glucose [Mass/volume] in Capillary blood by Glucometer Observa Value Referen Units Interpr Notes Date tion ce etation Range Glucose 70 - 110 mg/dl High No Dec 17 [Mass/vol informati 2017 5:13 ume] in on in PM Capillary source blood by data Glucomete r Glucose [Mass/volume] in Capillary blood by Glucometer Observa Value Referen Units Interpr Notes Date tion ce etation Range Glucose 70 - 110 mg/dl High No Dec 17 [Mass/vol alert informati 2017 ume] in on in 12:07 PM Capillary source blood by data Glucomete r Glucose [Mass/volume] in Capillary blood by Glucometer Observa Value Referen Units Interpr Notes Date tion ce etation Range Glucose 70 - 110 mg/dl High No Dec 17 [Mass/vol informati 2017 6:31 ume] in on in AM Capillary source blood by data Glucomete r CBC W Auto Differential panel in Blood Observa Value Referen Units Interpr Notes Date tion ce etation Range Basophils 0 - 0.2 K/MM3 Normal No Dec 17 informati 2017 6:30 [#/volume on in AM ] in source Blood by data Automated count Basophils 0.1 - 2.0 % Normal No Dec 17 informati 2017 6:30 leukocyte on in AM s in source Blood by data Automated count Eosinophi 0.0 - 0.4 K/mm3 Normal No Dec 17 ls informati 2017 6:30 [#/volume on in AM ] in source Blood by data Automated count Eosinophi 0.1 - % Normal No Dec 17 ls/100 12.0 informati 2016 6:30 leukocyte on in AM s in source Blood by data Automated count Granulocy 1.8 - 7.8 K/mm3 High No Dec 17 jose informati 2017 6:30 [#/volume on in AM ] in source Blood by data Automated count Granulocy 37.0 - % High No Dec 17 jose/100 80.0 informati 2017 6:30 leukocyte on in AM s in source Blood by data Automated count Hematocri 37.0 - % Low No Dec 17 t [Volume 47.0 informati 2017 6:30 on in AM Fraction] source of Blood data Hemoglobi 12.2 - g/dL Low No Dec 17 n 16.2 informati 2017 6:30 [Mass/vol on in AM ume] in source Blood data Lymphocyt 0.7 - 4.5 K/mm3 Normal No Dec 17 es informati 2017 6:30 [#/volume on in AM ] in source Unspecifi data ed specimen by Automated count Lymphocyt 10 - 50.0 % Low No Dec 17 es informati 2016 6:30 [#/volume on in AM ] in source Unspecifi data ed specimen by Automated count Erythrocy 27 - 31.2 pg Normal No Dec 17 te mean informati 2016 6:30 corpuscul on in AM ar source hemoglobi data n [Entitic mass] Erythrocy 31.8 - g/dl Normal No Dec 17 te mean 35.4 informati 2016 6:30 corpuscul on in AM ar source hemoglobi data n concentra tion [Mass/vol ume] by Automated count Erythrocy 82.2 - fl Normal No Dec 17 te mean 97.8 informati 2016 6:30 corpuscul on in AM ar volume source [Entitic data volume] by Automated count Monocytes 0.1 - 1.0 K/mm3 Normal No Dec 17 informati 2016 6:30 [#/volume on in AM ] in source Blood by data Automated count Monocytes 1.7 - 9.3 % Normal No Dec 17 informati 2016 6:30 leukocyte on in AM s in source Blood by data Automated count Platelet 7.4 - fl High No Dec 17 mean 10.4 informati 2016 6:30 volume on in AM [Entitic source volume] data in Blood by Automated count Platelets 142 - 424 K/mm3 Low No Dec 17 informati 2016 6:30 [#/volume on in AM ] in source Blood data Erythrocy 4.2 - 5.4 M/mm3 Low No Dec 17 jose informati 2016 6:30 [#/volume on in AM ] in source Amniotic data fluid Erythrocy 11.5 - % Normal No Dec 17 te 17.5 informati 2016 6:30 distribut on in AM ion width source [Entitic data volume] by Automated count Leukocyte 4.8 - K/MM3 High No Dec 17 s 10.8 informati 2016 6:30 [#/volume on in AM ] in source Blood data Differential panel, method unspecified - Observa Value Referen Units Interpr Notes Date tion ce etation Range LYMPH 13 10 - 50 % Normal No Dec 17 inform2016 tion in 6:30 AM source data Monocytes 2 - 9 % Normal No Dec 17 informati 2016 6:30 leukocyte on in AM s in source Blood by data Automated count Platele MARKED No No No No Dec 17 ts DECREAS informa informa informa informa 2016 [Presen E tion in tion in tion in tion in 6:30 AM ce] in source source source source Blood data data data data by Light microsc opy Neutrophi 42 - 76 % High No Dec 17 ls informati 2016 6:30 [#/volume on in AM ] in source Blood by data Automated count Cells No #CELLS No No Dec 17 Counted informati informati informati 2016 6:30 Total [#] on in on in on in AM in Blood source source source data data data Basic metabolic panel in Blood Observa Value Referen Units Interpr Notes Date tion ce etation Range Urea 7 - 18 mg/dL High No Dec 17 nitrogen informati 2016 6:30 [Mass/vol on in AM ume] in source Serum or data Plasma Calcium 8.5 - mg/dL Normal No Dec 17 [Mass/vol 10.1 informati 2017 6:30 ume] in on in AM Serum or source Plasma data Chloride 98 - 107 mmoL/L Normal No Dec 17 [Moles/vo informati 2016 6:30 lume] in on in AM Serum or source Plasma data Carbon 21.0 - mmoL/L Low No Dec 17 dioxide, 32.0 informati 2017 6:30 total on in AM [Moles/vo source lume] in data Serum or Plasma Creatinin 0.55 - mg/dL High No Dec 17 e 1.02 informati 2017 6:30 [Mass/vol on in AM ume] in source Serum or data Plasma Creatinin 50 - 200 ML/MIN Low No Dec 17 e renal informati 2016 6:30 clearance on in AM source predicted data by Cockcroft -Gault formula Estimated 59- ML/MIN Low REFERENCE Dec 17 RANGE: 2017 6:30 glomerula >60 AM r ML/MIN/1. filtratio 73 SQUARE n rate METERSIf (GF this patient is -A merican, then multiply theresult by 1.210. Glucose 74 - 106 mg/dL High No Dec 17 [Mass/vol informati 2016 6:30 ume] in on in AM Serum or source Plasma data Potassium 3.5 - 5.1 mmoL/L Low No Dec 17 informati 2016 6:30 [Moles/vo on in AM lume] in source Serum or data Plasma Sodium 136 - 145 mmoL/L Low No Dec 17 [Moles/vo informati 2017 6:30 lume] in on in AM Serum or source Plasma data Glucose [Mass/volume] in Capillary blood by Glucometer Observa Value Referen Units Interpr Notes Date ti etation Range Glucose 70 - 110 mg/dl High No Dec 16 [Mass/vol informati 2017 8:22 ume] in on in PM Capillary source blood by data Glucomete r Glucose [Mass/volume] in Capillary blood by Glucometer Observa Value Referen Units Interpr Notes Date ti ce etation Range Glucose 70 - 110 mg/dl High No Dec 16 [Mass/vol informati 2016 5:09 ume] in on in PM Capillary source blood by data Glucomete r Glucose [Mass/volume] in Capillary blood by Glucometer Observa Value Referen Units Interpr Notes Date tion ce etation Range Glucose 70 - 110 mg/dl High No Dec 16 [Mass/vol informati 2016 ume] in on in 11:55 AM Capillary source blood by data Glucomete r CBC W Auto Differential panel in Blood Observa Value Referen Units Interpr Notes Date tion ce etation Range Basophils 0 - 0.2 K/MM3 Normal No Dec 16 informati 2016 6:30 [#/volume on in AM ] in source Blood by data Automated count Basophils 0.1 - 2.0 % Normal No Dec 16 / informati 2016 6:30 leukocyte on in AM s in source Blood by data Automated count Eosinophi 0.0 - 0.4 K/mm3 Normal No Dec 16 ls informati 2016 6:30 [#/volume on in AM ] in source Blood by data Automated count Eosinophi 0.1 - % Normal No Dec 16 ls/100 12.0 informati 2016 6:30 leukocyte on in AM s in source Blood by data Automated count Granulocy 1.8 - 7.8 K/mm3 High No Dec 16 jose informati 2016 6:30 [#/volume on in AM ] in source Blood by data Automated count Granulocy 37.0 - % High No Dec 16 jose/100 80.0 informati 2016 6:30 leukocyte on in AM s in source Blood by data Automated count Hematocri 37.0 - % Low No Dec 16 t [Volume 47.0 informati 2016 6:30 on in AM Fraction] source of Blood data Hemoglobi 12.2 - g/dL Low No Dec 16 n 16.2 informati 2016 6:30 [Mass/vol on in AM ume] in source Blood data Lymphocyt 0.7 - 4.5 K/mm3 Normal No Dec 16 es informati 2016 6:30 [#/volume on in AM ] in source Unspecifi data ed specimen by Automated count Lymphocyt 10 - 50.0 % Normal No Dec 16 es informati 2016 6:30 [#/volume on in AM ] in source Unspecifi data ed specimen by Automated count Erythrocy 27 - 31.2 pg Normal No Dec 16 te mean informati 2016 6:30 corpuscul on in AM ar source hemoglobi data n [Entitic mass] Erythrocy 31.8 - g/dl Normal No Dec 16 te mean 35.4 informati 2017 6:30 corpuscul on in AM ar source hemoglobi data n concentra tion [Mass/vol ume] by Automated count Erythrocy 82.2 - fl Normal No Dec 16 te mean 97.8 informati 2016 6:30 corpuscul on in AM ar volume source [Entitic data volume] by Automated count Monocytes 0.1 - 1.0 K/mm3 Normal No Dec 16 informati 2017 6:30 [#/volume on in AM ] in source Blood by data Automated count Monocytes 1.7 - 9.3 % Normal No Dec 16 /100 informati 2017 6:30 leukocyte on in AM s in source Blood by data Automated count Platelet 7.4 - fl Normal No Dec 16 mean 10.4 informati 2017 6:30 volume on in AM [Entitic source volume] data in Blood by Automated count Platelets 142 - 424 K/mm3 Low No Dec 16 informati 2017 6:30 [#/volume on in AM ] in source Blood data Erythrocy 4.2 - 5.4 M/mm3 Low No Dec 16 jose informati 2017 6:30 [#/volume on in AM ] in source Amniotic data fluid Erythrocy 11.5 - % Normal No Dec 16 te 17.5 informati 2017 6:30 distribut on in AM ion width source [Entitic data volume] by Automated count Leukocyte 4.8 - K/MM3 High No Dec 16 s 10.8 informati 2016 6:30 [#/volume on in AM ] in source Blood data Basic metabolic panel in Blood Observa Value Referen Units Interpr Notes Date tion ce etation Range Urea 7 - 18 mg/dL High No Dec 16 nitrogen informati 2017 6:30 [Mass/vol on in AM ume] in source Serum or data Plasma Calcium 8.5 - mg/dL Low No Dec 16 [Mass/vol 10.1 informati 2016 6:30 ume] in on in AM Serum or source Plasma data Chloride 98 - 107 mmoL/L Normal No Dec 16 [Moles/vo informati 2016 6:30 lume] in on in AM Serum or source Plasma data Carbon 21.0 - mmoL/L Normal No Dec 16 dioxide, 32.0 informati 2017 6:30 total on in AM [Moles/vo source lume] in data Serum or Plasma Creatinin 0.55 - mg/dL High No Dec 16 e 1.02 informati 2016 6:30 [Mass/vol on in AM ume] in source Serum or data Plasma Creatinin 50 - 200 ML/MIN Low No Dec 16 e renal informati 2016 6:30 clearance on in AM source predicted data by Cockcroft -Gault formula Estimated 59- ML/MIN Low REFERENCE Dec 16 RANGE: 2017 6:30 glomerula >60 AM r ML/MIN/1. filtratio 73 SQUARE n rate METERSIf (GF this patient is -A merican, then multiply theresult by 1.210. Glucose 74 - 106 mg/dL High No Dec 16 [Mass/vol informati 2016 6:30 ume] in on in AM Serum or source Plasma data Potassium 3.5 - 5.1 mmoL/L Normal No Dec 16 informati 2016 6:30 [Moles/vo on in AM lume] in source Serum or data Plasma Sodium 136 - 145 mmoL/L Low No Dec 16 [Moles/vo informati 2016 6:30 lume] in on in AM Serum or source Plasma data Glucose [Mass/volume] in Capillary blood by Glucometer Observa Value Referen Units Interpr Notes Date tion ce etation Range Glucose 70 - 110 mg/dl High No Dec 16 [Mass/vol informati 2016 6:20 ume] in on in AM Capillary source blood by data Glucomete r Lactate [Moles/volume] in Serum or Plasma Observa Value Referen Units Interpr Notes Date tion ce etation Range Lactate 0.4 - 2.0 MMOL/L High Dec 16 [Moles/vo 2017 lume] in CRITICAL 12:10 AM Serum or RESULTS Plasma RESU LTS CALLED TO: EDUAR Ibarra 12/16/16 0053 Ila Grace elevated Lactic Acid is suggestiv e of sepsis and shouldbe repeated within 6 hours of initial testing. Bacteria identified in Blood by Aerobe culture Observa Value Referen Units Interpr Notes Date tion ce etation Range Is patient on antibiotics? N Bacteri RESULTS No No No No Dec 15 a : GRAM informa informa informa informa 2017 identif STAIN: tion in tion in tion in tion in 8:25 PM ied in GNR source source source source Blood data data data data by PCR: Aerobe culture Bacteri RESULTS No No No No Dec 15 a CALLED informa informa informa informa 2017 identif TO: tion in tion in tion in tion in 8:25 PM ied in JIMMY source source source source Blood EMERITA data data data data by Aerobe 7 [id number] culture Boyers, Margarita Bacteri Escheri No No No No Dec 15 a bernadine informa informa informa informa 2017 identif coli tion in tion in tion in tion in 8:25 PM ied in source source source source Blood data data data data by Aerobe culture Bacteria identified in Blood by Anaerobe culture Observa Value Referen Units Interpr Notes Date tion ce etation Range Is patient on antibiotics? N Bacteri RESULTS No No No No Dec 15 a : GRAM informa informa informa informa 2017 identif STAIN: tion in tion in tion in tion in 8:25 PM ied in GNR source source source source Blood data data data data by PCR: Anaerob e culture Bacteri RESULTS No No No No Dec 15 a CALLED informa informa informa informa 2017 identif TO: tion in tion in tion in tion in 8:25 PM ied in JIMMY source source source source Blood EMERITA data data data data by Anaerob 7 0916 e Boyers, culture Margarita Bacteri Escheri No No No No Dec 15 a bernadine informa informa informa informa 2017 identif coli tion in tion in tion in tion in 8:25 PM ied in source source source source Blood data data data data by Anaerob e culture Lactate [Moles/volume] in Blood Observa Value Referen Units Interpr Notes Date tion ce etation Range Lactate 0.4 - 2.0 mmol/L High Dec 15 [Moles/vo 2016 8:25 lume] in CRITICAL PM Blood RESULTS [facility] CALLED TO: [id number] 12/15/162101 Butch Rosales cassidyLoni elevated Lactic Acid is suggestiv e of sepsis and shouldbe repeated within 6 hours of initial testing. Bacteria identified in Urine by Culture Observa Value Referen Units Interpr Notes Date ti ce etation Range Bacteri Escheri No No No No Dec 15 a bernadine informa informa informa informa 2017 identif coli tion in tion in tion in tion in 7:25 PM ied in source source source source Urine data data data data by Culture CBC W Auto Differential panel in Blood Observa Value Referen Units Interpr Notes Date ti ce etation Range Basophils 0 - 0.2 K/MM3 Normal No Dec 15 informati 2016 6:45 [#/volume on in PM ] in source Blood by data Automated count Basophils 0.1 - 2.0 % Normal No Dec 15 / informati 2016 6:45 leukocyte on in PM s in source Blood by data Automated count Eosinophi 0.0 - 0.4 K/mm3 Normal No Dec 15 ls informati 2016 6:45 [#/volume on in PM ] in source Blood by data Automated count Eosinophi 0.1 - % Normal No Dec 15 ls/100 12.0 informati 2016 6:45 leukocyte on in PM s in source Blood by data Automated count Granulocy 1.8 - 7.8 K/mm3 High No Dec 15 jose informati 2016 6:45 [#/volume on in PM ] in source Blood by data Automated count Granulocy 37.0 - % High No Dec 15 jose/100 80.0 informati 2016 6:45 leukocyte on in PM s in source Blood by data Automated count Hematocri 37.0 - % Normal No Dec 15 t [Volume 47.0 informati 2016 6:45 on in PM Fraction] source of Blood data Hemoglobi 12.2 - g/dL Normal No Dec 15 n 16.2 informati 2016 6:45 [Mass/vol on in PM ume] in source Blood data Lymphocyt 0.7 - 4.5 K/mm3 Normal No Dec 15 es informati 2016 6:45 [#/volume on in PM ] in source Unspecifi data ed specimen by Automated count Lymphocyt 10 - 50.0 % Low No Dec 15 es informati 2016 6:45 [#/volume on in PM ] in source Unspecifi data ed specimen by Automated count Erythrocy 27 - 31.2 pg Normal No Dec 15 te mean inform2016 6:45 corpuscul on in PM ar source hemoglobi data n [Entitic mass] Erythrocy 31.8 - g/dl Normal No Dec 15 te mean 35.4 informati 2016 6:45 corpuscul on in PM ar source hemoglobi data n concentra tion [Mass/vol ume] by Automated count Erythrocy 82.2 - fl Normal No Dec 15 te mean 97.8 informati 2016 6:45 corpuscul on in PM ar volume source [Entitic data volume] by Automated count Monocytes 0.1 - 1.0 K/mm3 Normal No Dec 15 informati 2016 6:45 [#/volume on in PM ] in source Blood by data Automated count Monocytes 1.7 - 9.3 % Normal No Dec 15 informati 2016 6:45 leukocyte on in PM s in source Blood by data Automated count Platelet 7.4 - fl Normal No Dec 15 mean 10.4 informati 2016 6:45 volume on in PM [Entitic source volume] data in Blood by Automated count Platelets 142 - 424 K/mm3 No No Dec 15 informati informati 2016 6:45 [#/volume on in on in PM ] in source source Blood data data Erythrocy 4.2 - 5.4 M/mm3 Normal No Dec 15 jose informati 2016 6:45 [#/volume on in PM ] in source Amniotic data fluid Erythrocy 11.5 - % Normal No Dec 15 te 17.5 informati 2016 6:45 distribut on in PM ion width source [Entitic data volume] by Automated count Leukocyte 4.8 - K/MM3 High No Dec 15 s 10.8 informati 2016 6:45 [#/volume on in PM ] in source Blood data Differential panel, method unspecified - Observa Value Referen Units Interpr Notes Date tion ce etation Range Neutrophi 0 - 8 % High No Dec 15 ls.band informati 2016 6:45 form/100 on in PM leukocyte source s in data Blood by Automated count Basophils 0 - 1 % Normal No Dec 15 informati 2016 6:45 leukocyte on in PM s in source Blood by data Automated count LYMPH 14 10 - 50 % Normal No Dec 15 informa 2016 tion in 6:45 PM source data Monocytes 2 - 9 % Normal No Dec 15 informati 2016 6:45 leukocyte on in PM s in source Blood by data Automated count Platele CLUMPED No No No No Dec 15 ts informa informa informa informa 2016 [Presen tion in tion in tion in tion in 6:45 PM ce] in source source source source Blood data data data data by Light microsc opy Neutrophi 42 - 76 % Normal No Dec 15 ls informati 2016 6:45 [#/volume on in PM ] in source Blood by data Automated count Erythro NORMAL No No No No Dec 15 cyte informa informa informa informa 2017 morphol tion in tion in tion in tion in 6:45 PM ogy source source source source finding data data data data [Identi fier] in Blood Cells No #CELLS No No Dec 15 Counted informati informati informati 2016 6:45 Total [#] on in on in on in PM in Blood source source source data data data Acetone [Mass/volume] in Serum or Plasma Observa Value Referen Units Interpr Notes Date ti ce etation Range Acetone NOT No No No Dec 15 [Mass/vol DETECTD informati informati informati 2016 6:45 ume] in on in on in on in PM Serum or source source source Plasma data data data Amylase [Enzymatic activity/volume] in Serum or Plasma Observa Value Referen Units Interpr Notes Date ti ce etation Range Amylase 25 - 115 [...] mg/dL Normal No Dec 15 .total informati 2016 6:45 [Mass/vol on in PM ume] in source Serum or data Plasma Urea 7 - 18 mg/dL High No Dec 15 nitrogen informati 2016 6:45 [Mass/vol on in PM ume] in source Serum or data Plasma Calcium 8.5 - mg/dL Normal No Dec 15 [Mass/vol 10.1 informati 2016 6:45 ume] in on in [...] or RESULTS Plasma RESU LTS CALLED TO: [facility] 12/15/16 1909 TIMOTEO JASON Potassium 3.5 - [...] U/L Low No Dec 15 [Enzymati informati 2016 6:45 c on in PM activity/ source volume] data in Serum or Plasma
--- OUTSIDE RECORDS SUMMARY | 2016-12-18 09:52 | External Medical Summary Rpt ---
[...] in on in AM [Suscepti source source [facility]] data data by Minimum inhibitor y concentra tion (PARADISE) Trimethop No ug/ml Susceptib No Dec 18 rim+Sulfa informati le informati 2016 7:01 methoxazo on in on in AM le source source [Suscepti data data [facility]] by Minimum inhibitor y concentra tion (PARADISE) Tobramyci No ug/ml Susceptib No Dec 18 n informati le informati 2016 7:01 [Suscepti on in on in AM bility] source source by data data Minimum inhibitor y concentra tion (PARADISE) Piperacil No ug/ml Susceptib No Dec 18 seven+Tazob informati le informati 2016 7:01 actam on in on in AM [Suscepti source source [facility]] data data by Minimum inhibitor y [...] 8:25 lume] in CRITICAL PM [facility] [id number] 12/15/162101 Butch Rosales [...]
[2016-12-18 10:06] VITALS: BP 144/74
[2016-12-18] MEDS ORDERED: LISINOPRIL 10MG10 MG PO (10:53)
--- NOTE | 2016-12-18 16:37 | PHARMACY CLINIC NOTE ---
Patient Demographics Patient Demographics Admission date: 12/18/16 Date: 12/18/16 Time: 1636 Allergies Coded Allergies: albuterol (04/25/15) enalapril (04/25/15) fluticasone (04/25/15) lorazepam (04/25/15) propranolol (04/25/15) HEIGHT- FT: 5 IN: 4.00 K.782 VTE General Information Disclaimer The following section includes nursing documentation that has been pulled in for pharmacy review. Patient's VTE score: 1 Patient's VTE Risk: VERY LOW RISK Clinical trial participant? No VTE prophylaxis [id number] VTE prophylaxis ordered? Yes Type of prophylaxis/treatment: ALEAH at 1630
[2016-12-18 19:17] VITALS: BP 148/76
[2016-12-19 07:19] VITALS: BP 182/69
--- NOTE | 2016-12-19 08:29 | ACUTE CARE PROGRESS NOTE (QUA) ---
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 Yes Right drug,dose,and route? Yes More targeted antbx? No How long atbx needed? 7 at 0828
--- NOTE | 2016-12-19 08:29 | ACUTE CARE PROGRESS NOTE (QUA) ---
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 Yes Right drug,dose,and route? Yes More targeted antbx? No How long atbx needed? 7 at 0828
[2016-12-19 09:04] VITALS: BP 182/69
[2016-12-19 19:21] VITALS: BP 154/64
[2016-12-20 07:43] VITALS: BP 154/64
[2016-12-20 19:13] VITALS: BP 150/63
[2016-12-21 08:36] VITALS: BP 159/87
[2016-12-21 09:00] VITALS: BP 159/87
--- NOTE | 2016-12-21 12:04 | ACUTE CARE PROGRESS NOTE (QUA) ---
Progress Notes Subjective Date 12/21/16 Time 1202 Assessment/Plan This inpt stay is expected to cross 2 MNs from start of care Yes Antibiotic Stewardship (2) Infxn that will respond? Yes Right drug,dose,and route? Yes More targeted antbx? No at 1203
[2016-12-21 19:11] VITALS: BP 154/67
[2016-12-22 07:40] VITALS: BP 154/67
[2016-12-22 08:10] VITALS: BP 150/60
[2016-12-22 19:57] VITALS: BP 185/70
[2016-12-23 08:00] VITALS: BP 166/65
[2016-12-23 09:05] VITALS: BP 166/65
--- NOTE | 2016-12-23 10:00 | ACUTE CARE PROGRESS NOTE (QUA) ---
Progress Notes Subjective Date 12/23/16 Time 0953 Patient/family reports: feeling better, no complaints Nursing reports: alert, no complaints Objective Findings Last VS-Temp:98.9 B/P:166/65 Pulse:101 Resp:20 SaO2:95 ROOM AIR Last weight lbs:134 oz: K.782 Method:Bed Scales Exam General appearance: normal appearance, awake, no acute distress Eyes: normal exam ENT: normal exam Neck: normal inspection, full range of motion Cardiovascular: normal exam, regular rate & rhythm Respiratory: normal exam ABD: normal exam, normal bowel sounds, soft Genitourinary: normal voiding & quantity Extremities: normal exam, moves all, warm Musculoskeletal: normal exam Skin: normal exam, warm Neuro: normal exam, alert, intact, oriented Reviewed: allergies, medications, vital signs, lab results, radiology report Assessment/Plan Problem List 1. Tobacco use 2. Gram-negative bacteremia 3. Gram negative sepsis Patient condition Stable Plan: continue current care This inpt stay is expected to cross 2 MNs from start of care Yes Comments: dm education per dieitian Antibiotic Stewardship (2) Infxn that will respond? Yes Right drug,dose,and route? Yes More targeted antbx? No at 0902
[2016-12-23 19:53] VITALS: BP 141/68
[2016-12-24 08:00] VITALS: BP 160/74
[2016-12-24 09:10] LABS: HEMOGLOBIN 11.3 g/dL (12.2-16.2); LYMPH # 1.8 K/mm3 (0.7-4.5); LYMPH % 16.1 % (10-50.0)
[2016-12-24 10:50] VITALS: BP 160/74
[2016-12-24 19:27] VITALS: BP 152/71
[2016-12-25] MEDS ORDERED: LASIX 20MG. TAB20 MG PO (00:54)
[2016-12-25] MEDS ORDERED: FAMOTIDINE 20MG20 MG PO (00:55)
[2016-12-25] MEDS ORDERED: ASPIRIN 325MG325 MG PO (00:56)
[2016-12-25] MEDS ORDERED: METFORMIN1000 MG PO (00:56)
[2016-12-25] MEDS ORDERED: CRESTOR5 MG PO (00:57)
[2016-12-25] MEDS ORDERED: AMARYL 2MG TABLE2 MG PO (00:57)
[2016-12-25] MEDS ORDERED: AMLO5TAB PO (01:07)
[2016-12-25] MEDS ORDERED: ATENOLOL100 MG PO (01:11)
[2016-12-25 08:00] VITALS: BP 189/83
--- NOTE | 2016-12-25 08:31 | DISCHARGE SUMMARY STANDARD ---
Demographics Admit date: 12/18/16 Discharge date: 12/25/16 History of present illness History of present illness 66 yr old wf who has over the last few days had lower abd and back pain with dec po intake and vomiting - pt with reported fever and was seen in the ed and found to have abn ct and uti - pt was admitted for ivf and abx urine cx:gram neg- e coli bacteremia Hospital Course Hospital Course: gram neg- e coli bacteremia- iv rochepin completed high glucose- insulin and changed to metformin follow up in office on Discharge diagnoses Problem List 1. Tobacco use 2. Gram-negative bacteremia 3. Gram negative sepsis 4. Hyperglycemia 5. Urinary tract infection Medications Medications: Discharge meds are as noted. Follow up Follow up in office in: 4 DAYS with: Ed Moscoso Comment: follow up in office at 0830
[2016-12-25] MEDS ORDERED: METFORMIN 500M500 MG PO ×2 (08:32→08:37)
--- NOTE | 2016-12-25 08:37 | ACUTE CARE PROGRESS NOTE (QUA) ---
Progress Notes Subjective Date 12/25/16 Time 0834 Patient/family reports: feeling better, no complaints Nursing reports: alert, no complaints Objective Findings Last VS-Temp:98.2 B/P:152/71 Pulse:97 Resp:16 SaO2:96 ROOM AIR Last weight lbs:131 oz:8 K.647 Method:Bed Scales Exam General appearance: normal appearance, alert, awake, no acute distress Eyes: normal exam ENT: normal exam Neck: normal inspection, full range of motion Cardiovascular: normal exam, regular rate & rhythm Respiratory: normal exam, clear to auscultation, good air movement, no respiratory distress ABD: normal exam, normal bowel sounds, soft Genitourinary: normal voiding & quantity Extremities: normal exam, no peripheral edema Musculoskeletal: normal exam Skin: normal exam, intact, warm Neuro: normal exam, alert, intact, oriented Reviewed: allergies, medications, vital signs, lab results, radiology report, consult note Assessment/Plan Problem List 1. Tobacco use 2. Gram-negative bacteremia 3. Gram negative sepsis 4. Hyperglycemia 5. Urinary tract infection Patient condition Stable Plan: initiate discharge plan This inpt stay is expected to cross 2 MNs from start of care Yes Comments: dc home with follow up on [facility] Antibiotic Stewardship (2) Infxn that will respond? Yes Right drug,dose,and route? Yes More targeted antbx? No at 0836
--- NOTE | 2016-12-25 08:37 | ACUTE CARE PROGRESS NOTE (QUA) ---
Progress Notes Subjective Date 12/25/16 Time 0834 Patient/family reports: feeling better, no complaints Nursing reports: alert, no complaints Objective Findings Last VS-Temp:98.2 B/P:152/71 Pulse:97 Resp:16 SaO2:96 ROOM AIR Last weight lbs:131 oz:8 K.647 Method:Bed Scales Exam General appearance: normal appearance, alert, awake, no acute distress Eyes: normal exam ENT: normal exam Neck: normal inspection, full range of motion Cardiovascular: normal exam, regular rate & rhythm Respiratory: normal exam, clear to auscultation, good air movement, no respiratory distress ABD: normal exam, normal bowel sounds, soft Genitourinary: normal voiding & quantity Extremities: normal exam, no peripheral edema Musculoskeletal: normal exam Skin: normal exam, intact, warm Neuro: normal exam, alert, intact, oriented Reviewed: allergies, medications, vital signs, lab results, radiology report, consult note Assessment/Plan Problem List 1. Tobacco use 2. Gram-negative bacteremia 3. Gram negative sepsis 4. Hyperglycemia 5. Urinary tract infection Patient condition Stable Plan: initiate discharge plan This inpt stay is expected to cross 2 MNs from start of care Yes Comments: dc home with follow up on [facility] Antibiotic Stewardship (2) Infxn that will respond? Yes Right drug,dose,and route? Yes More targeted antbx? No at 0836
[2016-12-25 09:08] VITALS: BP 152/71
[2016-12-25 12:15] VITALS: BP 152/71
== END 2016-12-25 12:15 | disposition home or self-care (01) | DRG 872 ==
LOC: 2ND 09:42
PROVIDERS: Internal Medicine Adolescent Medicine
DX: R78.81 Bacteremia (principal); N17.9 Acute kidney failure, unspecified; N39.0 Urinary tract infection, site not specified; J44.9 Chronic obstructive pulmonary disease, unspecified; B96.20 Unspecified Escherichia coli [E. coli] as the cause of diseases classified elsewhere; Z72.0 Tobacco use; E11.65 Type 2 diabetes mellitus with hyperglycemia
CPT/HCPCS: J2405

== ENCOUNTER → 2016-12-29 | Outpatient (CLI) | payer MEDICARE, MEDICAID ==
[~2016-12-29] MED LIST changes: +AMARYL 2MG TABLE2 MG PO; +AMLO5TAB PO; +ASPIRIN 325MG325 MG PO; +ATENOLOL100 MG PO; +CRESTOR5 MG PO; +FAMOTIDINE 20MG20 MG PO; +LASIX 20MG. TAB20 MG PO; +LISINOPRIL 10MG10 MG PO; +METFORMIN 500M500 MG PO; +METFORMIN1000 MG PO
[2016-12-29 16:59] LABS: BUN 11 mg/dL (7-18)
[2016-12-29 17:01] LABS: GFR (ESTIMATED) 83 ML/MIN (59-)
== END ==
LOC: LAB 15:33
PROVIDERS: Nurse Practitioner Family
DX: E11.9 Type 2 diabetes mellitus without complications (principal)

== ENCOUNTER → 2017-02-25 | Outpatient (CLI) | payer MEDICARE, MEDICAID | LOC: LAB 16:25 | DX: N39.0 Urinary tract infection, site not specified (principal) ==

== ENCOUNTER → 2017-03-03 | Outpatient (CLI) | payer MEDICARE, MEDICAID ==
[2017-03-03 16:04] LABS: BUN 11 mg/dL (7-18)
[2017-03-03 16:19] LABS: GFR (ESTIMATED) 72 ML/MIN (59-)
== END ==
LOC: LAB 12:07
PROVIDERS: Nurse Practitioner Family
DX: N39.0 Urinary tract infection, site not specified (principal); R31.9 Hematuria, unspecified; N17.9 Acute kidney failure, unspecified